=== PATIENT | female | born 1970 | race Caucasian/White ===

== ENCOUNTER → 2020-05-12 09:14 | Outpatient (BNVA) | payer BC, SELFPAY | PROVIDERS: PCP Physician Assistant Medical; Referring Provider Physician Assistant Medical; Visit Provider Anesthesiology Pain Medicine | DX: M51.36 Other intervertebral disc degeneration, lumbar region (principal); M47.816 Spondylosis without myelopathy or radiculopathy, lumbar region; M54.9 Dorsalgia, unspecified; E66.9 Obesity, unspecified; F17.210 Nicotine dependence, cigarettes, uncomplicated | CPT/HCPCS: 99203; 99204 ==

== ENCOUNTER → 2020-05-26 12:35 | Outpatient (BNVA) | payer BC, SELFPAY | PROVIDERS: PCP Physician Assistant Medical; Visit Provider Anesthesiology Pain Medicine | DX: M47.816 Spondylosis without myelopathy or radiculopathy, lumbar region (principal); M54.9 Dorsalgia, unspecified; F17.210 Nicotine dependence, cigarettes, uncomplicated | CPT/HCPCS: 64493; 64494; J1030; J3490 ==

== ENCOUNTER → 2020-08-25 14:34 | Outpatient (BNVA) | payer BC, SELFPAY | PROVIDERS: PCP Physician Assistant Medical; Visit Provider Podiatrist Foot & Ankle Surgery | DX: M79.671 Pain in right foot (principal) | CPT/HCPCS: 73630 ==

== ENCOUNTER 2020-09-22 07:13 | Outpatient (CLI) | payer BC, SELFPAY ==
[2020-09-22 09:12] LABS: 25 Hydroxy Vitamin D 31 ng/mL (30-100)
== END 2020-09-22 07:14 | disposition home or self-care (01) ==
LOC: LAB 07:16
PROVIDERS: PCP Physician Assistant Medical; Visit Provider Podiatrist Foot & Ankle Surgery
DX: M96.0 Pseudarthrosis after fusion or arthrodesis (principal)
CPT/HCPCS: 36415; 82306; 87635

== ENCOUNTER 2020-09-26 06:49 | Day surgery (SDC) | payer BC, SELFPAY ==
[2020-09-25 13:51] VITALS: BMI 39.9
--- NOTE | 2020-09-26 | SCC_ITS ---
Procedure Done: Hardware Removal deep rigth foot 02791 3 seconds of fluoroscopic guidance, for a cumulative dose of 0.07 mGy, was provided to Dr. Cook by the radiology department. C-arm images of the RIGHT foot were saved for the patient's permanent record. [facility]ITAL[facility]
[2020-09-26 06:55] VITALS: BP 141/93; PULSE 78; RESP 18; TEMP 36.1; O2SAT 95
[2020-09-26] MEDS: sodium chloride 0.9% 1,000 ML 30 ML IV (07:15)
--- NOTE | 2020-09-26 07:28 | ANES.PREANE2 ---
Pre-Anesthetic Assessment Pre-Anesthetic Assessment: Height/Weight: Height 1.7 m Weight 115.666 kg Temp Pulse Resp BP Pulse Ox 97 F L 78 18 141/93 95 09/26/20 06:55 09/26/20 06:55 09/26/20 06:55 09/26/20 06:55 09/26/20 06:55 Preop Diagnosis: Nonunion right foot. Painful retained hardware right foot. Proposed Procedure: Operation Date: 09/26/20 08:20 Proposed Procedures p Hardware Removal deep rigth foot 43560 T84.84XA(Right) - Zan Cook, DPM Was Beta Tono taken within 24 hours: Yes Last intake: Intake Last Liquid Date 09/25/20 Last Liquid Time 22:00 Last Solid Date 09/25/20 Last Solid Time 22:00 Social: Social History: No alcohol and No tobacco Exam: Pre-Anes Outpt Exam: alert, oriented x 3, clear to auscultation bilaterally and regular rate & rhythm Airway: Submandibular: WNL Cervical ROM: WNL MP: 2 Dentition: Full Pulmonary: Pulmonary: Sleep apnea CV/HEM: CV/HEM: CAD and HTN Metabolic: Metabolic: Morbid obesity Musc/skel: Musc/skel: Lower Back Pain Anesthetic Plan: ASA status: 3 Anesthesia: Choice Risk of > 500 ml blood loss (7ml/kg in children): No Meds/Allergies Current Medications: Current Medications Generic Name Dose Route Start Last Admin Trade Name Freq PRN Reason Stop Dose Admin Sodium Chloride 1,000 mls @ 30 ml s/hr 09/26/20 07:00 09/26/20 07:15 Sodium Chloride 0.9% IV 09/27/20 06:59 30 mls/hr .Q24H MAGAN Administration PFSH Anesthesia PFSH: Medical History Dyslipidemia HTN (hypertension) Obesity Sleep apnea Surgical History S/P coronary artery stent placement Family History Other Carotid artery stenosis Hypertension Social History Smoking and tobacco status: current every day smoker cigarettes Alcohol intake: never Caregiver/support person: Yes Lives independently: Yes History of recent travel: No Data Anesthesia Cardiac Studies: No Data to Display
--- NOTE | 2020-09-26 08:25 | P.HP_ITS ---
Providers/Chief Complaint Primary Care Provider: Isai Aldrich Chief Complaint: painful orthopedic hardware History of Present Illness Lupe Tom is a 50 year old female presents with right foot pain with painful retained hardware and nonunion arthrodesis site performed in [address] Brody in [facility]. 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 Discussed a staged procedure where we remove hardware and utilize a bone stimulator with plans for revisional arthrodesis pending her response to the above. She would like to proceed with this. She is n.p.o. since midnight. Patient denies any subjective nausea, vomiting, fever, chills, shortness of breath or chest pain. Review of Systems General: Reports: 10 or more systems reviewed and unremarkable except in HPI and below Const: Denies: fever(s) or chills Eyes: Denies: change in vision Card: Denies: chest pain or palpitations Resp: Denies: dyspnea or productive cough GI: Denies: abdominal pain, nausea or vomiting : Denies: flank pain Musc: Reports: extremity pain, joint pain, joint stiffness, limited range of motion and deformity Skin/Breast: Reports: skin tenderness; Denies: rash Neuro: Reports: difficulty walking; Denies: numbness in extremities, sensory changes or frequent falls Psych: Denies: suicidal ideation Reagan/Lymph: Denies: easy bruising Medications/Allergies Home Medications Medication Instructions Recorded Confirmed Last Taken Type aspirin 81 mg tablet,delayed 81 mg PO DAILY 12/28/19 09/25/20 Unknown History release atorvastatin 40 mg tablet 40 mg PO DAILY 12/28/19 09/25/20 Unknown History bupropion HCl 100 mg tablet 100 mg PO TID 12/28/19 09/25/20 Unknown History carvedilol 3.125 mg tablet 3.125 mg PO BID 12/28/19 09/25/20 Unknown History clopidogrel 75 mg tablet 75 mg PO DAILY 12/28/19 09/25/20 09/22/20 History gemfibrozil 600 mg tablet 600 mg PO BID 12/28/19 09/25/20 Unknown History lorazepam 0.5 mg tablet 0.5 mg PO DAILY PRN 12/28/19 09/25/20 Unknown History nitroglycerin 0.4 mg sublingual 0.4 mg SUBLINGUAL Q5M PRN 12/28/19 09/25/20 Unknown History tablet venlafaxine 75 mg capsule,extended 75 mg PO DAILY 12/28/19 09/25/20 Unknown History release 24 hr pregabalin 100 mg capsule 100 mg PO BID #60 cap 05/12/20 09/25/20 Unknown Rx topiramate 25 mg tablet 25 mg PO DAILY 05/12/20 09/25/20 Unknown History bone stimulator #1 ea 08/29/20 08/29/20 Unknown Rx Allergies Allergy/AdvReac Type Severity Reaction Status Date / Time amoxicillin Allergy ADR-Itching Verified 09/25/20 13:47 sumatriptan Allergy ALGY-Anaphy Verified 08/25/20 14:44 laxis adhesive tape AdvReac itchy Verified 08/25/20 14:44 PFSH PFSH: Medical History Dyslipidemia HTN (hypertension) Obesity Sleep apnea Surgical History S/P coronary artery stent placement Family History Other Carotid artery stenosis Hypertension Social History Smoking and tobacco status: current every day smoker cigarettes Alcohol intake: never Caregiver/support person: Yes Lives independently: Yes History of recent travel: No Vital Signs Vitals Signs: Last Vital Signs Temp 97 F L 09/26/20 06:55 Pulse 78 09/26/20 06:55 Resp 18 09/26/20 06:55 BP 141/93 09/26/20 06:55 Pulse Ox 95 09/26/20 06:55 Weight: Weight last 48 hrs Weight 255 lb Physical Exam Narrative: EXAM NARRATIVE: Patient is alert and oriented ?3 and in no acute distress. The following is a focused bilateral lower extremity exam. VASCULAR: Dorsalis pedis and posterior tibial arteries palpable +2. Capillary refill time less than 3 seconds to the distal hallux bilaterally. Calf is supple and nontender proximally and distally. Edema to the right midfoot dorsally and medially. Pedal hair growth present. NEUROLOGICAL: Protective sensation is diminished at the dorsal lateral aspect of the right forefoot compared to medial aspect tested with [place] Romario monofilament she is able to perceive the monofilament however it is diminished. +2 Achilles tendon reflex noted bilaterally. Negative Tinel sign upon percussion of lower extremity nerves. DERMATOLOGICAL: Cicatrix to the right medial column at the level of the navicular and cuneiforms. Lower extremity skin is well-hydrated, normal texture and turgor. There are no open sores or lesions noted to the lower extremities. No erythema or ecchymosis present to the bilateral legs and feet. MUSCULOSKELETAL: Pain to palpation at the right medial navicular, dorsal navicular and cuneiforms. Rectus foot type. Muscle strength 5 out of 5 in all 3 cardinal planes to the bilateral foot and ankle. There is pain elicited at the navicular and cuneiform articulations with dorsiflexion and plantarflexion, eversion and inversion. There is no crepitus. Resp: COMMON NORMALS: normal respiratory effort, No retractions, No use of accessory muscles and clear to auscultation bilaterally EFFORT & INSPECTION: Yes able to speak in complete sentences and Yes symmetric chest movement Cardio: COMMON NORMALS: regular rate, regular rhythm and Peripheral pulses 2+ throughout A&P Additional A&P Information Patient examined and evaluated, findings and treatment options discussed with patient at length. I reviewed x-rays of her right foot 3 views weightbearing shows intact hardware without breakage. Oblique screw from medial navicular to the lateral cuneiform has lucency around the screw due to motion. Also motion at the oblique screw from the medial cuneiform directed distal medial to proximal lateral shows motion. There is also motion artifact at the distal plate screws directed from medial to lateral in the medial and intermediate cuneiform. There is a lack of osseous healing at the naviculocuneiform ar ticulations at the arthrodesis site. This correlates clinically to pain to palpation at these joints. I reviewed patient's x-rays at length with her as well as clinical findings and informed her that hardware placement looked very appropriate, I did explain the motion at the hardware and this is due to a nonunion. I would like to order vitamin D level, encouraged smoking cessation and discussed revision. Patient states that she would like to have this done as soon as possible. I believe that going into a revision of this nature we do need to check basic labs as well as precertify her for bone stimulator. Will also discuss hardware removal and staged resection of nonunion with revisional arthrodesis. Will proceed with staged procedure hardware removal today, utilize vitamin D supplement, utilize bone stimulator for nonunion and plan on revisional arthrodesis down the road should she fail to achieve bony union. Risks include pain, bleeding, numbness, infection, surgical site dehiscence, swelling, neuropraxia, hypersensitivity, painful scar, chronic swelling, DVT, PE, heart attack, stroke, , need for revisional arthrodesis. Patient wishes to proceed. Right foot deep hardware removal 09/26/2020, MAC anesthesia, duration of procedure likely 30 minutes. 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
--- NOTE | 2020-09-26 08:31 | P.HPUD_ITS ---
Surgery/Procedure H&P Update DATE OF PROCEDURE: September 26, 2020 DATE H&P PERFORMED: 09/19/20 H&P UPDATE INFORMATION: I have reviewed H&P completed within last 30 days, I have examined patient prior to procedure, No changes to prior documentation and H&P is in [facility] EMR on date indicated PREOP DIAGNOSIS: Nonunion right foot. Painful retained hardware right foot. PLANNED PROCEDURE: Operation Date: 09/26/20 08:20 Proposed Procedures p Hardware Removal deep rigth foot 48340 T84.84XA(Right) - Zan Cook DPM
--- NOTE | 2020-09-26 09:49 | XR_ITS ---
WS: [id number] Exam: XR foot RT min 3V* [id number] Date/Time of Exam: 09/26/2020 9:53 AM Reason For Exam: post op Comparison 08/25/2020. Previously noted fusion hardware has been removed from the navicular and first and second cuneiform b ones. Postoperative changes in the adjacent soft tissues. XR/XR foot RT min 3V* [id number] IMPRESSION: 1. Hardware removal from the tarsal navicular and first and second cuneiform sarah rai.
[2020-09-26 09:51] VITALS: BP 116/61; PULSE 71; RESP 16; TEMP 36.1; O2SAT 94
--- NOTE | 2020-09-26 09:51 | PM.OP ---
Operative Report Date of procedure: September 26, 2020 Pre-op Diagnosis: Nonunion right foot. Painful retained hardware right foot. Post-op diagnosis: same Post-op Findings: None Procedure Done: Hardware Removal deep rigth foot Implants: 2-0 Vicryl, 4-0 Vicryl, 4-0 nylon Specimens removed/disposition: 5 screws 1 plate right foot removed from bone. Pathology: none sent Surgeon: Zan Cook D.P.M. Academic Assistant: Trina Anesthesia: MAC Estimated blood loss: Less than 5 mL Tourniquet time: See intraoperative documentation IV fluids: None Urine output: None Complications: None Findings: Deep retained hardware Condition: stable Disposition: PACU Brief History: Ms. Jean is a pleasant 50-year-old female with painful retained hardware and nonunion to the right foot. Would like to have a staged procedure with hardware removal as the initial step, will supplement vitamin D3 and utilize bone stimulator once approved by insurance this is currently pending. Should she continue to have pain will likely require a revisional arthrodesis this is something that would be staged out. Risks include pain, bleeding, numbness, infection, painful scar, chronic swelling, nonunion, need for further surgical intervention. Patient interviewed preoperatively, all questions answered to her satisfaction. No concerns. Initial patient's right lower extremity informed consent is signed. No guarantees written, expressed or implied. Procedure: Under the patient was brought to the operating room and placed on the operating table in supine position. A timeout was performed. Anesthesia was then administered by the anesthesia service. Local anesthesia injected by myself 30 cc of 0.5% Marcaine plain in a right ankle block fashion. A well-padded pneumatic tourniquet applied to the right calf. Right lower extremity was scrubbed, prepped and draped utilizing normal aseptic technique. Right foot was examined a weighted with an Esmarch bandage and the tourniquet was inflated to 250 mmHg. Attention was directed to the dorsal medial aspect of the first ray, directly over the previous cicatrix a #15 blade was utilized to perform a linear longitudinal incision through skin and and dissection carried down through subcutaneous tissue down the level of the hardware utilizing sharp and blunt technique. Care was taken to retract and preserve neurovascular and tendinous structures. All bleeders were ligated and cauterized as necessary. Hardware was encountered to bone and a total of 5 screws and 1 plate all Garfield were passed from operative field. No for the hardware remaining, this was confirmed utilizing intraoperative fluoroscopy. Incision site was flushed with saline solution. Periosteum reapproximated utilizing 2-0 Vicryl. Subcutaneous tissue closed utilizing 4-0 Vicryl and skin closed utilizing 4-0 nylon in a running interlocking fashion. Subcutaneous tissue was infiltrated with Exparel total of 20 cc nonexpanded. Incision site was then dressed with nonadherent Adaptic, sterile 4 x 4, Kerlix and Inderjit wrap. Cam boot was applied. Tourniquet was deflated and a prompt hyperemic response was noted to the distal digits of the right foot. Patient tolerated the procedure and anesthesia well and was transferred to the PACU with vital signs stable and vascular status intact. Following a period of postop monitoring she will be discharged home was given instructions and follow-up care on discharge paperwork.
[2020-09-26] MEDS: HYDROcodone-acetaminophen 10-325 mg Tablet 1 TAB PO (10:21)
[2020-09-26 10:35] VITALS: BP 131/70; PULSE 65; RESP 18; O2SAT 96
--- NOTE | 2020-09-26 13:59 | ANE.PACU2 ---
Inpatient post-anesthesia follow up: Airway intact: Yes Vital signs: Temperature 97 F Pulse Rate 65 Respiratory Rate 18 Blood Pressure 131/70 Pulse Oximetry 96 Oxygen Delivery Me thod Room Air Oxygen Flow Rate Fraction of Inspir ed Oxygen Hydration adequate: Yes Nausea and vomiting: No Pain level: 1 Mental status: Baseline
== END 2020-09-26 10:38 | disposition home or self-care (01) ==
PROVIDERS: PCP Physician Assistant Medical; Visit Provider Podiatrist Foot & Ankle Surgery
PROC: (CPT 20680; principal; 2020-09-26 08:20)
DX: T84.84XA Pain due to internal orthopedic prosthetic devices, implants and grafts, initial encounter (principal); G47.30 Sleep apnea, unspecified; I25.10 Atherosclerotic heart disease of native coronary artery without angina pectoris; I10 Essential (primary) hypertension; E66.01 Morbid (severe) obesity due to excess calories; Z68.39 Body mass index [BMI] 39.0-39.9, adult; E78.5 Hyperlipidemia, unspecified; F17.210 Nicotine dependence, cigarettes, uncomplicated; Z79.82 Long term (current) use of aspirin; Z95.5 Presence of coronary angioplasty implant and graft
CPT/HCPCS: 20680; 73630; 76000; 96365; C1713; J0690; J2250; J2704; J3010; J3490; J7030

== ENCOUNTER → 2020-10-10 09:51 | Outpatient (BNVA) | payer BC, SELFPAY | PROVIDERS: PCP Physician Assistant Medical; Visit Provider Podiatrist Foot & Ankle Surgery | DX: M79.673 Pain in unspecified foot (principal); T84.84XA Pain due to internal orthopedic prosthetic devices, implants and grafts, initial encounter | CPT/HCPCS: 73630 ==

== ENCOUNTER → 2020-12-18 08:04 | Outpatient (BNVA) | payer BC, SELFPAY | PROVIDERS: PCP Physician Assistant Medical; Visit Provider Podiatrist Foot & Ankle Surgery | DX: M79.671 Pain in right foot (principal) | CPT/HCPCS: 73620; 73630 ==

== ENCOUNTER 2021-01-16 07:44 | Outpatient (CLI) | payer BC, SELFPAY ==
--- NOTE | 2021-01-16 08:00 | MR_ITS ---
WS: [id number] MRI LUMBAR SPINE NONCONTRAST TECHNIQUE: Sagittal T1, T2 and STIR imaging. Axial T1 and T2 imaging. CLINICAL INFORMATION: M48.061 - Spinal stenosis, lumbar region without neurogen... COMPARISON: MRI June 2019 FINDINGS: Mild lumbar curve. No acute compression. Schmorl's node inferior endplate L2 unchanged [id number]. No high-grade central canal stenosis. L1-L2: Normal. L2-L3: Mild disc bulging with slight narrowing of the right subarticular recess. Mild facet arthropat hy. Foramen are patent. L3-L4: Mild annular bulging. Mild facet arthropathy. Spinal canal and foramen are patent. L4-L5: Left eccentric disc bulging with mild central canal stenosis. Impingement on traversing left L 5 nerve root. Left foraminal protrusion impinges the exiting L4 nerve root with moderate left foramin al narrowing. Right foramen is patent. Mild facet arthropathy. L5-S1: Tiny right foraminal protrusion with slight encroachment on the exiting right L5 nerve root. N o significant foraminal narrowing. Mild facet arthropathy. Visualized pelvic bony structures: Normal. Paravertebral soft tissues: Normal. MR/MR lumbar spine wo con* [id number] IMPRESSION: 1. Mild lumbar curve. No acute compression. No high-grade central canal stenos is. 2. Mild central canal stenosis L4-5 with mild disc bulging eccentric to the le ft. Impingement traversing left L5 nerve root. 3. Left foraminal protrusion L4-5 impinges the exiting left L4 nerve root with moderate left foraminal narrowing. 4. Mild facet arthropathy L3-L5. 5. Overall no significant changes since 2019
== END 2021-01-16 07:45 | disposition home or self-care (01) ==
LOC: RADSHAW 07:47
PROVIDERS: PCP Physician Assistant Medical; Visit Provider Orthopaedic Surgery
DX: M48.061 Spinal stenosis, lumbar region without neurogenic claudication (principal); M47.816 Spondylosis without myelopathy or radiculopathy, lumbar region; M51.26 Other intervertebral disc displacement, lumbar region
CPT/HCPCS: 72110; 72148

== ENCOUNTER 2021-02-09 15:02 | Outpatient (CLI) | payer BC, SELFPAY | END 2021-02-09 15:03 | disposition home or self-care (01) | LOC: SPT 15:03 | PROVIDERS: PCP Physician Assistant Medical; Visit Provider Podiatrist Foot & Ankle Surgery | DX: Z46.89 Encounter for fitting and adjustment of other specified devices (principal); T84.84XD Pain due to internal orthopedic prosthetic devices, implants and grafts, subsequent encounter; X58.XXXD Exposure to other specified factors, subsequent encounter | CPT/HCPCS: L3030 ==

== ENCOUNTER → 2021-02-17 11:00 | Outpatient (BNVA) | payer BC, SELFPAY | PROVIDERS: PCP Physician Assistant Medical; Visit Provider Orthopaedic Surgery | DX: Z01.818 Encounter for other preprocedural examination (principal); Z20.822 Contact with and (suspected) exposure to COVID-19 | CPT/HCPCS: 87635 ==

== ENCOUNTER 2021-02-20 07:03 | Day surgery (SDC) | payer BC, SELFPAY ==
[2021-02-19 11:20] VITALS: BMI 38.5
--- NOTE | 2021-02-19 13:00 | ECG_ITS ---
[facility] Test Date: 2021-02-19 Pat Name: Lupe Tom Department: Room: Gender: Female Manager Utilities: : 1970 Requested By: Sarah Mcmullen Order Number: [id number] Dylan MD: Bhupendra Finney M.D. Measurements Intervals [place] Rate: 94 P: 58 NM: 150 QRS: 22 QRSD: 90 T: 32 QT: 349 QTc: 437 Interpretive Statements SINUS RHYTHM NONSPECIFIC T-WAVE ABNORMALITY Compared to ECG 05/14/2017 18:31:27 No significant changes Electronically Signed On 02-20-2021 14:57:42 CDT by Bhupendra Finney M.D. [email or web address]
--- NOTE | 2021-02-19 13:16 | ANES.PREANE2 ---
Pre-Anesthetic Assessment Pre-Anesthetic Assessment: Height/Weight: Height 1.7 m Weight 111.584 kg Preop Diagnosis: Nonunion right foot. Painful retained hardware right foot. Proposed Procedure: Operation Date: 02/20/21 08:40 Proposed Procedures p lumbar decompression L4/5 10673 63388 M48.061(Not Applicable) - Anthony Jackson DO Familial anesthetic complications: None Social: Social History: Tobacco and No alcohol Exam: Pre-Anes Outpt Exam: alert, oriented x 3, clear to auscultation bilaterally and regular rate & rhythm Airway: Cervical ROM: WNL MP: 1 Dentition: Full and Other (back missing) Pulmonary: Pulmonary: Sleep apnea (no longer has sleep apnea) CV/HEM: CV/HEM: CAD (RCA/LAD stents 6-7 years ago, on plavix), HTN and CT (6-7 years ago) Metabolic: Metabolic: Morbid obesity Musc/skel: Musc/skel: Lower Back Pain Neuropsych: Neuropsych: CROWDER Anesthetic Plan: ASA status: 3 Anesthesia: General Risk of > 500 ml blood loss (7ml/kg in children): No PFSH Anesthesia PFSH: Medical History Coronary artery disease Dyslipidemia HTN (hypertension) Obesity Sleep apnea Tobacco use disorder Surgical History S/P cholecystectomy S/P coronary artery stent placement S/P total abdominal hysterectomy Family History Other Carotid artery stenosis Hypertension Social History Smoking and tobacco status: current every day smoker cigarettes Alcohol intake: never Caregiver/support person: Yes Lives independently: Yes History of recent travel: No Data Anesthesia Cardiac Studies: No Data to Display
[2021-02-19 13:45] LABS: Basophils # 0.1 10^3/uL (0.0-0.1); Basophils % 0.5 %; Eosinophils # 0.1 10^3/uL (0.0-0.8); Eosinophils % 0.6 %; Hematocrit 46.7 % (37.0-47.0); Hemoglobin 15.5 g/dL (11.5-15.3); Lymphocytes # 3.7 10^3/uL (0.8-4.8); Lymphocytes % 33.9 %; Mean Corpuscular HGB Conc 33.2 g/dL (30.0-36.0); Mean Corpuscular Hemoglobin 32.4 pg (28.0-34.0); Mean Corpuscular Volume 97.5 fL (81-99); Mean Platelet Volume 12.1 fL (7.4-10.4); Monocytes # 0.9 10^3/uL (0.2-0.9); Monocytes % 8.6 %; Neutrophils # 6.13 10^3/uL (1.8-7.7); Neutrophils % 55.9 %; Nucleated Red Blood Cells % 0 %; Platelet Count 240 10^3/cmm (130-400); Red Blood Count 4.79 10^6/uL (4.1-5.3); Red Cell Distribution Width 12.4 % (12.1-15.1)
[2021-02-20] VITALS (9 sets, daily range): BP systolic 130–156; BP diastolic 83–89; PULSE 71–109; RESP 16–18; TEMP 36.6–37.2; O2SAT 96–100
--- NOTE | 2021-02-20 | XR_ITS ---
WS: [id number] Lumbar spine, C-arm fluoroscopy view, 02/20/2021 Clinical Data: Decompression L4/L5 Comparison: Lumbar spine, 12/26/2020. Findings: Dr. Jackson decompressed the L4-L5 disc level. XR/XR lumbar spine 1V 40115 Impression: Decompression L4-L5.
--- NOTE | 2021-02-20 | SCC_ITS ---
Procedure Done: L4/5 bilateral laminectomy with partial facetectomies 13.6 seconds of fluoroscopic guidance, for a cumulative dose of 6.4 mGy, was provided to Dr. Jackson by the radiology department. C-arm images of the lumbar spine were saved for the patient's permanent record. CRYSTAL
--- NOTE | 2021-02-20 07:47 | ANES.PAUD2 ---
Pre-Anesthetic Update Pre-Anesthetic Assessment: Date of Surgery/Procedure: 02/20/21 Preop Diagnosis: lumbar stenosis Proposed Procedure: Operation Date: 02/20/21 08:40 Proposed Procedures p lumbar decompression L4/5 41512 25964 M48.061(Not Applicable) - Anthony Jackson, DO Any changes to Pre-Anesthetic Assessment?: No Last Intake: Intake Last Liquid Date 02/19/21 Last Liquid Time 22:00 Last Solid Date 02/19/21 Last Solid Time 22:00 Labs Last 48hrs: Laboratory Results - last 48 hr 02/19/21 13:05 WBC 11.0 H RBC 4.79 Hgb 15.5 H Hct 46.7 MCV 97.5 MCH 32.4 MCHC 33.2 RDW 12.4 Plt Count 240 MPV 12.1 H Neut % (Auto) 55.9 Lymph % (Auto) 33.9 [place] % (Auto) 8.6 Eos % (Auto) 0.6 Baso % (Auto) 0.5 Neut # (Auto) 6.13 Lymph # (Auto) 3.7 [place] # (Auto) 0.9 Eos # (Auto) 0.1 Baso # (Auto) 0.1 Nucleated RBC % (a uto) 0 Nucleated RBCs # 0.0 Vitals: Temperature 97.8 F 02/20/21 07:22 Pulse Rate 80 02/20/21 07:22 Pulse Rhythm 02/20/21 07:23 Pulse Strength 3+ Normal 02/20/21 07:23 Respiratory Rate 16 02/20/21 07:22 Blood Pressure 132/86 02/20/21 07:22 Blood Pressure Bessie n 101 02/20/21 07:22 Pulse Oximetry 96 02/20/21 07:22 Oxygen Delivery Me thod 02/20/21 07:23 Exam: Pre-Anes Outpt Exam: alert, oriented x 3, clear to auscultation bilaterally and regular rate & rhythm Cardiac Studies: No Data to Display
--- NOTE | 2021-02-20 07:54 | W.PM.OPSUD ---
Surgery/Procedure H&P Update DATE OF PROCEDURE: February 20, 2021 DATE H&P PERFORMED: 02/20/21 PREOP DIAGNOSIS: lumbar stenosis PLANNED PROCEDURE: Operation Date: 02/20/21 08:40 Proposed Procedures p lumbar decompression L4/5 41546 64839 M48.061(Not Applicable) - Anthony Jackson DO
--- NOTE | 2021-02-20 07:55 | PM.HP ---
Providers/Chief Complaint Primary Care Provider: Isai Aldrich Chief Complaint: lumbar decompression L4/5 [id number] History of Present Illness Lupe Tom is a 50 year old female Chief Complaint: low back pain Onset: years - after falling down wet stairs Duration: years Characteristics: ache Severity: 8 Location: low back Radiating symptoms: none Aggravating factors: increase activity Alleviating factors: continues to use rest, topical cream, ibuprofen 4x a day, Tylenol,and aleve with minimal relief Neuro deficits: denies numbness, tingling, weakness, incontinence of bowel/bladder, saddle anesthesia. Prior tx: Facet injection to L4/[address] Bonilla with one day of relief but then increase in pain after that. Review of Systems Narrative: General ROS: negative for weight changes, fever ENT ROS: negative for nasal congestion, drainage or bleeding, sore throat, dysphagia or ear pain Eyes: PERRL Hematological and Lymphatic ROS: negative for swollen glands or abnormal bleeding Endocrine ROS: negative for polyuria/polydpsia or new changes in weight Respiratory ROS: negative for cough, shortness of breath, or wheezing Cardiovascular ROS: negative for chest pain or dyspnea on exertion Gastrointestinal ROS: negative for reflux, abdominal pain, change in bowel habits, or black or bloody stools Musculoskeletal ROS: negative for back pain, neck pain, or joint pain or swelling except for current problem Neurological ROS: negative for TIA or stoke symptoms Skin: no rashes Medications/Allergies Home Medications Medication Instructions Recorded Confirmed Last Taken Type aspirin 81 mg tablet,delayed 81 mg PO DAILY 12/28/19 02/19/21 Unknown History release atorvastatin 40 mg tablet 40 mg PO DAILY 12/28/19 02/19/21 Unknown History bupropion HCl 100 mg tablet 100 mg PO TID 12/28/19 02/19/21 Unknown History carvedilol 3.125 mg tablet 3.125 mg PO BID 12/28/19 02/20/21 02/20/21 07:00 History clopidogrel 75 mg tablet 75 mg PO DAILY 12/28/19 02/19/21 02/12/21 History gemfibrozil 600 mg tablet 600 mg PO BID 12/28/19 02/20/21 02/19/21 History venlafaxine 75 mg capsule,extended 75 mg PO DAILY 12/28/19 02/20/21 02/20/21 07:00 History release 24 hr topiramate 25 mg tablet 25 mg PO DAILY 05/12/20 02/20/21 02/19/21 History nitroglycerin 0.4 mg sublingual 0.4 mg SUBLINGUAL Q5M PRN #30 tab 11/05/20 02/19/21 Unknown Rx tablet Sole Supports #1 ea 12/18/20 01/22/21 Unknown Rx Allergies Allergy/AdvReac Type Severity Reaction Status Date / Time amoxicillin Allergy ADR-Itching Verified 02/19/21 11:13 sumatriptan Allergy ALGY-Anaphy Verified 02/19/21 11:13 laxis adhesive tape AdvReac itchy Verified 02/19/21 11:13 PFSH Acute PFSH: Medical History Coronary artery disease Dyslipidemia HTN (hypertension) Obesity Sleep apnea Tobacco use disorder Surgical History S/P cholecystectomy S/P coronary artery stent placement S/P total abdominal hysterectomy Family History Other Carotid artery stenosis Hypertension Social History Smoking and tobacco status: current every day smoker cigarettes Alcohol intake: never Caregiver/support person: Yes Lives independently: Yes History of recent travel: No Vitals/I&O/Wt Last Vital Signs Temp 97.8 F 02/20/21 07:22 Pulse 80 02/20/21 07:22 Resp 16 02/20/21 07:22 BP 132/86 02/20/21 07:22 Pulse Ox 96 02/20/21 07:22 Weight last 48 hrs Weight 246 lb Physical Exam Narrative: EXAM NARRATIVE: CONSTITUTIONAL: The patient is a normal appearing [] in no apparent distress. GENERAL: Patient in no acute distress. CARDIAC: Regular rate and rhythm. CHEST: Normal inspiratory effort, normal respiratory rate. ABDOMEN: Soft and nontender. SKIN: Clear, warm and intact. NEURO?PSYCH: The patient is alert and oriented to person, place and time. Sensorv /SILT Motor StrengthShoulder abduction C5 5/5Wrist extension C6 5/5Elbow extension C7 5/5Hand Registered Art Therapist C8 5/5Finger abduction T15/5 Radial/ Ulnar/ Median n intact LowerSensory (SILT)Motor StrengthHin flexion L2/3Ant/inner thigh 5/5Hip adduction L2/3 5/5Knee extension L4 Lat thigh, 5/5Toe dorsiflexion L5 5/5Ankle dorsiflexion L5/ K50Pemkirl flexion S1 5/5 DTRBleeps 2+Triceps 2+Brachioradialis 2+Patellar 2+Achilles 2+ MUSCULOSKELETAL: [] UPPEREXTREMITIES: The patient had full active ROM in fingers, wrist, elbow, and shoulder. The patient demonstrated ability to fully flex/extend/abduct/adduct fingers, make ok sign, cross 2nd/3rd digits, extend 1st digit fully.. Radial pulse 2+, CR<2 seconds. LOWER EXTREMITIES: Pt has full, active ROM of toes, ankle, knee, and hip. Dorsalis pedis/posterior tibialis pulses 2+, CR<2 seconds. SPINE: Skin warm, dry, intact. Data : 02/19/21 13:05 A&P Assessment and plan (1) Lumbar stenosis with neurogenic claudication: L4/5 MIS decompresion Status: Acute Attestations Medical Necessity Statement*: failed conservative tx Coding Level of Care Code Acute Pediatrics Physician for [facility] Fwd Diagnoses Lumbar stenosis with neurogenic claudication M48.062
[2021-02-20] MEDS: clindamycin 900 MG/50 ML PREMIX 100 MG IV (08:20)
[2021-02-20] MEDS: sodium chloride 0.9% 1,000 ML 30 ML IV (08:30)
--- NOTE | 2021-02-20 09:30 | PM.OP ---
Operative Report Date of procedure: February 20, 2021 Pre-op Diagnosis: lumbar stenosis Post-op diagnosis: same Procedure Done: L4/5 bilateral laminectomy with partial facetectomies Surgeon: Anthony Jackson Anesthesia: General Estimated blood loss (mL): 5 Condition: stable Disposition: PACU Procedure: L4/5 bilateral laminectomy with partial facetectomies Patient is brought to the operative suite. After undergoing anesthesia they are placed in the supine position. All areas of impingement are well padded. Patient is then prepped and draped in the normal sterile fashion. A skin incision is made over the L4/5 level. This is confirmed under c-arm guidance. A series of dilators are passed and the tubular retractor is docked on the L4 lamina. A bovie is used to clear the soft tissue off the lamina and the L 4/5 facet joint. A high speed daniella is then used to perform the laminectomy and take down the medial aspect of the L 4/5 facet joint. A kerrison rongeure was then used to take down the remaining lamina and smooth the edged of the laminectomy up to the point where the ligamentum flavum attaches. Attention was then brought to the medial aspect of the facet joint. The remaining medial aspect of the superior and inferior aspect of the facet joint were taken down with the kerrison from the pedicle of L4 to L 5. The facet joint had significant hypertrophy. Attention was then brought to the Ligamentum Flavum. The ligament was taken down from the lamina of L4 to L5 and out medially to the remaining facet joint. The ligament was thick. The dura was then exposed. The dura was in good repair. The L4 nerve was then traced with a curette out the L4/5 foramen and found to be adequately decompressed. The L5 nerve was traced with a curette around the L5 pedicle. The lateral recess was opened with a kerrison helping to further decompress the L5 nerve. The tubular retractor was then tilted to the contralateral side. The bovie was used to take down the soft tissue on the spinous process. The high speed daniella was used to take down the spinous process and then the contralateral lamina of L4. The kerrison rongeur was used to take down the remaining lamina to the point where the ligamentum flavum attached and the ligamentum flavum was taken down from L4 to L5. The kerrison rongeur was then used to reach across and take down the medial aspect of the contralateral L4/5 facet joint.The currete was used to trace the contralateral L4 nerve out the L4/5 foramen to make sure it was decompressed adequatesly and the L5 was traced around the L5 pedicle. The lateral recess was opened further with the kerrison to ensure the L5 is adequately decompressed. Wound is then irrigated copiously with saline and surgiflo is used to stop any bleeding. The tubular retractor is removed and the wound is closed with vicryl and monocryl suture. Glue is then used to protect the wound. A sterile dressing is then placed. Patient was then placed in the supine position and transferred to the PACU in stable condition.
--- NOTE | 2021-02-20 09:47 | SUR.PHASEI ---
PT AWAKES ALERT ORIENTED TO PERSON AND PLACE PT REPOSITIONS SELF, VSS GOOD RESP , PT ON RT SIDE, O2 NOW PER 3LNC FOR PT COMFORT.
[2021-02-20] MEDS: acetaminophen 1,000 MG/100 ML PIGGYBACK 400 MG IV (10:30)
--- NOTE | 2021-02-20 10:38 | SUR.PREOP ---
patient complaint of sever headache. Dr. hoffman informed alone with Dr. Jackson. Iv tylenol given with caffeine. Patient also given pain pill. bp 134/89
[2021-02-20] MEDS: HYDROcodone-acetaminophen 5-325 mg Tablet 1 TAB PO (10:42)
--- NOTE | 2021-02-20 11:32 | SUR.PREOP ---
patient head feel better. Dr. Jackson in to see her. Patient feels better and ready to go home.
--- NOTE | 2021-02-20 14:24 | ANE.PACU2 ---
Inpatient post-anesthesia follow up: Airway intact: Yes Vital signs: Temperature 97.8 F Pulse Rate 73 Respiratory Rate 18 Blood Pressure 133/83 Pulse Oximetry 97 Oxygen Delivery Me thod Room Air Oxygen Flow Rate 3 Fraction of Inspir ed Oxygen Hydration adequate: Yes Nausea and vomiting: No Pain level: 2 Mental status: Baseline
== END 2021-02-20 11:31 | disposition home or self-care (01) ==
PROVIDERS: Anesthesiology; PCP Physician Assistant Medical; Visit Provider Orthopaedic Surgery
PROC: (CPT 63005; principal; 2021-02-20 08:35)
DX: M48.062 Spinal stenosis, lumbar region with neurogenic claudication (principal); I25.10 Atherosclerotic heart disease of native coronary artery without angina pectoris; Z95.5 Presence of coronary angioplasty implant and graft; I10 Essential (primary) hypertension; I25.2 Old myocardial infarction; E66.01 Morbid (severe) obesity due to excess calories; Z68.38 Body mass index [BMI] 38.0-38.9, adult; E78.5 Hyperlipidemia, unspecified; G47.30 Sleep apnea, unspecified; F17.210 Nicotine dependence, cigarettes, uncomplicated
CPT/HCPCS: 63047; 36415; 72020; 76000; 85025; 93005; J1100; J2405; J2704; J2710; J3010; J3490; J7030

== ENCOUNTER → 2022-02-04 13:28 | Outpatient (BNVA) | payer BC, SELFPAY | PROVIDERS: PCP Physician Assistant Medical; Visit Provider Orthopaedic Surgery | DX: Z48.89 Encounter for other specified surgical aftercare (principal) | CPT/HCPCS: 72100 ==

== ENCOUNTER 2022-06-08 15:21 | Outpatient (CLI) | payer BC, SELFPAY ==
--- NOTE | 2022-06-08 16:00 | MR_ITS ---
WS: [id number] MRI LUMBAR SPINE NONCONTRAST TECHNIQUE: Sagittal T1, T2 and STIR imaging. Axial T1 and T2 imaging. CLINICAL INFORMATION: lumbar pain COMPARISON: None. FINDINGS: Mild lumbar curve. No acute compression. Anterior wedging at L2. This is unchanged since January 16 1. L1-L2: Normal. L2-L3: Mild disc bulging with slight effacement of ventral thecal sac. Slight narrowing of the RIGHT subarticular recess. Mild facet arthropathy. Mild RIGHT foraminal narrowing. L3-L4: No significant disc bulging. Mild facet arthropathy. Spinal canal and foramen are patent. L4-L5: LEFT hemilaminectomy is new from previous. Mild disc bulging with impingement LEFT subarticula r recess and traversing LEFT L5 nerve root. Moderate facet arthropathy. Small facet effusions. LEFT f oraminal protrusion with moderate LEFT foraminal narrowing. L5-S1: Mild disc bulging with osteophytic ridging. Mild RIGHT and no significant LEFT foraminal narro wing. Spinal canal is patent. Visualized pelvic bony structures: Normal. Paravertebral soft tissues: Normal. MR/MR lumbar spine wo con* [id number] IMPRESSION: 1. Mild lumbar curve. No acute compression. No high-grade central canal stenos is. Chronic anterior wedging at L2 unchanged. 2. LEFT L4-L5 hemilaminectomy appears new from previous. Improved central dave l stenosis at this level. Mild residual impingement traversing LEFT L5 nerve ro ot. LEFT foraminal protrusion impinges the exiting LEFT L4 nerve root with mode rate LEFT foraminal narrowing. 3. Otherwise no significant changes compared to previous. 4. Mild RIGHT L5-S1 foraminal narrowing. 5. Mild facet arthropathy L3-L4 and L4-L5. 6. Mild annular bulging L2-L3 slightly impinges the traversing RIGHT L3 nerve root with mild RIGHT L2-L3 foraminal narrowing.
== END 2022-06-08 15:22 | disposition home or self-care (01) ==
LOC: RAD 15:22
PROVIDERS: PCP Physician Assistant Medical; Visit Provider Physician Assistant
DX: M48.061 Spinal stenosis, lumbar region without neurogenic claudication (principal); Z48.89 Encounter for other specified surgical aftercare; M47.816 Spondylosis without myelopathy or radiculopathy, lumbar region
CPT/HCPCS: 72148

== ENCOUNTER 2022-09-08 10:09 | Outpatient (CLI) | payer BC, SELFPAY | END 2022-09-08 10:10 | disposition home or self-care (01) | LOC: RT 09-10 10:12 | PROVIDERS: PCP Physician Assistant Medical; Visit Provider Orthopaedic Surgery | DX: Z13.6 Encounter for screening for cardiovascular disorders (principal) | CPT/HCPCS: 93005 ==

== ENCOUNTER 2022-09-15 16:34 | Inpatient (IN) | payer BC, SELFPAY ==
--- NOTE | 2022-09-08 10:34 | ECG_ITS ---
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 Measurements Intervals Hester Rate: 83 P: 53 KS: 144 QRS: 39 QRSD: 93 T: 31 QT: 404 QTc: 477 Interpretive Statements SINUS RHYTHM NONSPECIFIC T-WAVE ABNORMALITY Compared to ECG 02/19/2021 13:10:20 No significant changes Electronically Signed On 09-09-2022 0:15:38 MACHINE II COREMAKER by Bhupendra Finney M.D. [id number]
--- NOTE | 2022-09-08 10:47 | ANES.PREANE2 ---
Pre-Anesthetic Assessment Height/Weight: Height 1.7 m Weight 102.058 kg Preop Diagnosis: lumbar stenosis Operation Date: 09/15/22 10:35 Proposed Procedures p Posterior Lumbar Interbody Fusion:L4/5 [id number],M45.50,M79.605,M54.37(Not Applicable) - Anthony Jackson, DO Familial anesthetic complications: None Social No alcohol and No tobacco Exam alert, oriented x 3, clear to auscultation bilaterally and regular rate & rhythm Airway Mallampati: Class III Dentition: full Pulmonary Sleep Apnea CV/HEM Coronary Artery Disease (2 stents) and Hypertension Metabolic Hyperlipidemia [facility] None reported Neuropsych None reported Anesthetic Plan ASA status: 3 Anesthesia: General Risk of > 500 ml blood loss (7ml/kg in children): No Medications/Allergies Home Medications Medication Instructions Recorded Confirmed Last Taken Type aspirin 81 mg tablet,delayed 81 mg PO DAILY 12/28/19 09/08/22 09/06/22 History release (Aspir-) atorvastatin 40 mg tablet 40 mg PO DAILY 12/28/19 09/08/22 09/06/22 History carvedilol 3.125 mg tablet 3.125 mg PO BID 12/28/19 09/08/22 09/06/22 History clopidogrel 75 mg tablet 75 mg PO DAILY 12/28/19 09/08/22 09/06/22 History gemfibrozil 600 mg tablet (Lopid) 600 mg PO BID 12/28/19 09/08/22 09/06/22 History venlafaxine 75 mg capsule,extended 75 mg PO DAILY 12/28/19 09/08/22 09/06/22 History release 24 hr nitroglycerin 0.4 mg sublingual 0.4 mg sublingual Q5M PRN Pain #30 07/01/22 09/08/22 Unknown Rx tablet tabs Allergies Allergy/AdvReac Type Severity Reaction Status Date / Time amoxicillin Allergy ADR-Itching Verified 09/08/22 10:28 sumatriptan Allergy ALGY-Anaphy Verified 09/08/22 10:28 laxis adhesive tape AdvReac itchy Verified 09/08/22 10:28 [facility] Anesthesia Medical History Coronary artery disease Dyslipidemia HTN (hypertension) Obesity Sleep apnea Tobacco use disorder Surgical History S/P cholecystectomy S/P coronary artery stent placement S/P total abdominal hysterectomy Family History Other Carotid artery stenosis Hypertension Social History (Updated 08/03/22 @ 08:10 by Claudia Aguilar LPN) Smoking and tobacco status: former smoker Quit status (tobacco): has quit using tobacco Second hand smoke exposure: No Smoking risk assessment/counseling performed?: Yes Tobacco counseling given: provider counseling Alcohol intake: never Caregiver/support person: Yes Lives independently: Yes History of recent travel: No Data Anesthesia Cardiac Studies: No Data to Display
[2022-09-15] VITALS (30 sets, daily range): BP systolic 95–151; BP diastolic 61–107; PULSE 75–107; RESP 7–20; TEMP 36.2–37; O2SAT 90–100
[2022-09-15] MEDS: sodium chloride 0.9% 1,000 ML 30 ML IV (11:34)
[2022-09-15] MEDS: scopolamine 1.5 Patch 1 PATCH TRANSDERMA (11:36)
--- NOTE | 2022-09-15 11:53 | P.ANESUD_ITS ---
Pre-Anesthetic Update Pre-Anesthetic Assessment: Date of Surgery/Procedure: 09/15/22 Preop Breonna gnosis: DDD Lumbar spine Proposed Procedure: Operation Date: 09/15/22 13:10 Proposed Procedures p Posterior Lumbar Interbody Fusion:L4/5 [id number],M45.50,M79.605,M54.37(Not Applicable) - Anthony Jackson, DO Any changes to Pre-Anesthetic Assessment?: No Last Intake: Intake Last Liquid Date 09/14/22 Last Liquid Time 23:00 Last Solid Date 09/14/22 Last Solid Time 23:00 Vitals: Temperature 97.9 F 09/15/22 11:17 Temperature Source Temporal Artery S can 09/15/22 11:17 Pulse Rate 85 09/15/22 11:17 Respiratory Rate 18 09/15/22 11:17 Blood Pressure 128/92 09/15/22 11:17 Blood Pressure Bessie n 104 09/15/22 11:17 Pulse Oximetry 99 09/15/22 11:17 Oxygen Delivery Me thod 09/15/22 11:17 Exam: Pre-Anes Outpt Exam: alert, oriented x 3, clear to auscultation bilaterally and regular rate & rhythm Cardiac Studies: No Data to Display
[2022-09-15] MEDS: HYDROmorphone 1 mg/mL INJ 1 mL 0.5 MG IVP ×2 (11:55→15:55)
--- NOTE | 2022-09-15 11:55 | PM.HP ---
Providers/Chief Complaint Primary Care Provider: SARAH Kirby Chief Complaint: PLIF/L4/5 [id number],M54.37 History of Present Illness Lupe Tom is a 51 year old female low back pain with intermittent lower extremity pain. Patient was sent for MRI of the lumbar spine and is here to go over results.? Historically patient? underwent a L4/5 bilateral laminectomy with partial facetectomies.?DOS:02/20/21. Patient states that she improved following the surgery until she had a fall approximately 4 months ago. Patient was evaluated by our clinic at that time. Patient was informed that she would need surgery to improve her symptoms however surgery was denied by the insurance company due to patient being a current smoker. Patient informs us today that she has been smoke free for 3 weeks. Patient states the pain continues to the lower back and has graduated to the lower legs and increased in the pain. Patient states that the pain affect her daily activities. Patient has pain with walking especially long distances. Patient has pain that affects her sleeping at night. Patient is here today for further evaluation and to discuss surgery. Review of Systems Const: Denies: fever(s) or chills Eyes: Denies: change in vision Card: Denies: chest pain, palpitations, swelling of feet/ankles, lightheadedness, dyspnea on exertion or orthopnea Resp: Denies: dyspnea, productive cough or non-productive cough GI: Denies: abdominal pain, nausea or vomiting Musc: Reports: joint pain; Denies: neck pain or back pain Neuro: Denies: headache(s) or dizziness Psych: Reports: anxiety; Denies: depression Reagan/Lymph: Denies: easy bruising or easy bleeding Medications/Allergies Home Medications Medication Instructions Recorded Confirmed Last Taken Type aspirin 81 mg tablet,delayed 81 mg PO DAILY 12/28/19 09/08/22 09/06/22 History release (Aspir-) atorvastatin 40 mg tablet 40 mg PO DAILY 12/28/19 09/08/22 09/06/22 History carvedilol 3.125 mg tablet 3.125 mg PO BID 12/28/19 09/08/22 09/06/22 History clopidogrel 75 mg tablet 75 mg PO DAILY 12/28/19 09/08/22 09/06/22 History gemfibrozil 600 mg tablet (Lopid) 600 mg PO BID 12/28/19 09/15/22 09/14/22 14:00 History venlafaxine 75 mg capsule,extended 75 mg PO DAILY 12/28/19 09/08/22 08/25/22 History release 24 hr nitroglycerin 0.4 mg sublingual 0.4 mg sublingual Q5M PRN Pain #30 07/01/22 09/08/22 Unknown Rx tablet tabs Intraoperative Neuromonitoring #1 ea 09/15/22 Unknown Rx Allergies Allergy/AdvReac Type Severity Reaction Status Date / Time amoxicillin Allergy ADR-Itching Verified 09/08/22 10:28 sumatriptan Allergy ALGY-Anaphy Verified 09/08/22 10:28 laxis adhesive tape AdvReac itchy Verified 09/08/22 10:28 PFSH Acute PFSH: Medical History Coronary artery disease Dyslipidemia HTN (hypertension) Obesity Sleep apnea Tobacco use disorder Surgical History S/P cholecystectomy S/P coronary artery stent placement S/P total abdominal hysterectomy Family History Other Carotid artery stenosis Hypertension Social History (Updated 08/03/22 @ 08:10 by Claudia Aguilar LPN) Smoking and tobacco status: former smoker Quit status (tobacco): has quit using tobacco Second hand smoke exposure: No Smoking risk assessment/counseling performed?: Yes Tobacco counseling given: provider counseling Alcohol intake: never Caregiver/support person: Yes Lives independently: Yes History of recent travel: No Vitals/I&O/Wt Last Vital Signs Temp 97.9 F 09/15/22 11:17 Pulse 85 09/15/22 11:17 Resp 18 09/15/22 11:17 BP 128/92 09/15/22 11:17 Pulse Ox 99 09/15/22 11:17 O2 Del Method 09/15/22 11:17 Physical Exam Narrative: CONSTITUTIONAL: The patient is a normal appearing [] in no apparent distress. GENERAL: Patient in no acute distress. CARDIAC: Regular rate and rhythm. CHEST: Normal inspiratory effort, normal respiratory rate. ABDOMEN: Soft and nontender. SKIN: Clear, warm and intact. NEURO?PSYCH: The patient is alert and oriented to person, place and time. Sensorv /SILT Motor StrengthShoulder abduction C5 5/5Wrist extension C6 5/5Elbow extension C7 5/5Hand Paper Machine Supervisor C8 5/5Finger abduction T15/5 Radial/ Ulnar/ Median n intact LowerSensory (SILT)Motor StrengthHin flexion L2/3Ant/inner thigh 5/5Hip adduction L2/3 5/5Knee extension L4 Lat thigh, 5/5Toe dorsiflexion L5 5/5Ankle dorsiflexion L5/ Q92Mqbgssj flexion S1 5/5 DTRBleeps 2+Triceps 2+Brachioradialis 2+Patellar 2+Achilles 2+ MUSCULOSKELETAL: [] UPPEREXTREMITIES: The patient had full active ROM in fingers, wrist, elbow, and shoulder. The patient demonstrated ability to fully flex/extend/abduct/adduct fingers, make ok sign, cross 2nd/3rd digits, extend 1st digit fully.. Radial pulse 2+, CR<2 seconds. LOWER EXTREMITIES: Pt has full, active ROM of toes, ankle, knee, and hip. Dorsalis pedis/posterior tibialis pulses 2+, CR<2 seconds. SPINE: Skin warm, dry, intact. A&P Assessment and plan (1) Low back pain radiating to left lower extremity: L4/5 PLIF Attestations Medical Necessity Statement*: failed conservative tx Coding Level of Care Code Acute Code for Chg Fwd Diagnoses Low back pain radiating to left lower extremity M54.50; M79.605
[2022-09-15] MEDS: clindamycin 900 MG/50 ML PREMIX 100 MG IV (12:22)
--- NOTE | 2022-09-15 13:21 | P.ANESUD_ITS ---
Pre-Anesthetic Update Pre-Anesthetic Assessment: Date of Surgery/Procedure: 09/15/22 Preop Breonna gnosis: DDD Lumbar spine Proposed Procedure: Operation Date: 09/15/22 13:10 Proposed Procedures p Posterior Lumbar Interbody Fusion:L4/5 [id number],M45.50,M79.605,M54.37(Not Applicable) - Anthony Jackson, DO Any changes to Pre-Anesthetic Assessment?: No Last Intake: Intake Last Liquid Date 09/14/22 Last Liquid Time 23:00 Last Solid Date 09/14/22 Last Solid Time 23:00 Vitals: Temperature 97.9 F 09/15/22 11:17 Temperature Source Temporal Artery S can 09/15/22 11:17 Pulse Rate 85 09/15/22 11:17 Respiratory Rate 18 09/15/22 11:17 Blood Pressure 128/92 09/15/22 11:17 Blood Pressure Bessie n 104 09/15/22 11:17 Pulse Oximetry 99 09/15/22 11:17 Oxygen Delivery Me thod 09/15/22 11:17 Exam: Pre-Anes Outpt Exam: alert, oriented x 3, clear to auscultation bilaterally and regular rate & rhythm Cardiac Studies: No Data to Display
[2022-09-15] MEDS: heparin, porcine 1,000 unit/mL INJ 10 mL 10000 UNIT IRRIGATION (13:26)
[2022-09-15] MEDS: vancomycin 1,000 MG SDV 1000 MG XX (13:26)
--- NOTE | 2022-09-15 14:53 | P.OP_ITS ---
Operative Report Date of procedure: September 15, 2022 Pre-op diagnosis: Preop Diagnosis DDD Lumbar spine Post-op diagnosis: same Procedure done: 1. L4/5 Interbody fusion with posterolateral fusion 2. Instrumentation L4/5 3. Cage at L4/5 4. Laminectomy L4 5. use of autograft from same incision 6. allograft 7. Bone marrow aspirate from right iliac crest 8. use of computer navigation /stereo tactic spine Surgeon: Anthony Jackson Pig Machine Operator: Nagi Sow Pig Machine Operator: The surgical coordinator, Nagi Sow, PAC was needed for his expertise under the microscope. He was important and necessary throughout the procedure to complete in a safe and timely manner. He assisted with patient positioning prepping and draping tissue retraction suctioning of the operative field protection of the dural sac and tissue closure Estimated blood loss (mL): 400 Procedure: 1. L4/5 Interbody fusion with posterolateral fusion 2. Instrumentation L4/5 3. Cage at L4/5 4. Laminectomy L4 5. use of autograft from same incision 6. allograft 7. Bone marrow aspirate from right iliac crest 8. use of computer navigation /stereo tactic spine Patient is brought to the operative suite. After undergoing anesthesia, the patient had neuro monitoring attached. Patient was then placed in the prone position on the Leobardo table. All areas of impingement were well-padded. Patient was then prepped and draped in the normal sterile fashion. Skin incision was then made over the L 4/ 5 space. Subperiosteal dissection was made out to the transverse processes of L4 and L5. The [employer] bone marrow aspirate kit was used to aspirate bone marrow aspirate from right iliac crest. This was done by using the sharp probe to open up the b one. Aspiration was performed and then the blunt probe was then used to dissect down to through the bone tunnel. An aspirating well drawn back a millimeter approximately 20 cc of bone marrow aspirate was used. Admixed with the allograft and autograft bone that will be used. Next attention was brought to placing the fiducial. This was done by placing 2 pins in the right iliac crest. Pins were later removed at the end of the case. Once pins were placed the fiducial was attached. C-arm was brought in and information from the C-arm was brought into the computer and this was used for placing the computer navigated screws. The technique for placing the pedicle screws was to use a drill followed by the gearshift probe linked to computer navigation. Followed by the ball probe to feel the superior inferior medial lateral sutton of the pedicles. Then placement of the screws using the computer navigation. Was done at each pedicle. Screws were placed at L4 bilaterally and L5. Next attention was brought to performing the laminectomy ofL4. This was done using the high-speed bur Kerrisons and curettes. Once the lamina was removed and then attention was brought to performing a partial facetectomy on the contralateral side. This was done again using the high-speed bur curettes and Kerrisons. The ligamentum flavum was taken down bilaterally from L4 to L5. Attention was then brought to the facet on the ipsilateral side. The facet was taken down. The L5 nerve was decompressed as it passed around the L5 pedicle. The laminectomy was done for purposes of decompressing the nerve as well as placement of the cage. The L4 nerve was identified as it traversed through the L4/5 foramen. The thecal sac was identified and retracted. The L4/5 disc base was identified. Using a knife the disc base was opened. And then sequential roselia were placed. The first shaver was a 6 and the last shaver was a 9. Using a pituitary and down going curette the endplates were scraped and disc material was removed from the space. Once adequate decompression of the disc base was felt to be had. Osteoamp sponge was packed into the anterior aspect of the disc base. Then a size 9 cage from [employer] was placed after packing osteoamp into the cage. While placing the cage the thecal sac and L5 nerve was protected. C arm was used to ensure that the cages placed in the appropriate p osition. Attention was then brought to attaching the rods to the screws placed in the L4 bilaterally and L5 bilaterally. Caps were torqued into position. Locking the construct in place. Wound was copiously irrigated and then attention was brought to decorticating the facets and transverse processes laterally. Bone that was taken down from the lamina was used along with osteoamp fibers and sponges were packed into the lateral gutters along the facet joints. This was done bilaterally. Wound was then closed in a layered fashion starting with the thoracolumbar fascia. 0-vicryl was used the sub cutaneous tissue was closed with 2-0 vicryl and skin with 4-0 monocryl. Glue was then used to seal the skin and a steril dressing was applied. Patient was then placed in the supine position. The e ndotracheal tube was removed and patient was transferred to the PACU in stable condition.
--- NOTE | 2022-09-15 14:53 | XR_ITS ---
WS: [id number] Lumbar spine, C-arm fluoroscopy views, 09/15/2022 Clinical Data: OR PICS Comparison: None. Findings: Dr. Jackson performed a posterior lumbar fusion. XR/XR lumbar spine 1V port [id number] Impression: Posterior lumbar fusion.
[2022-09-15] MEDS: fentaNYL 50 mcg/mL INJ 2mL IVP ×2 (15:22→15:40)
--- NOTE | 2022-09-15 16:02 | PC.NURSE ---
Continued pain management.
--- NOTE | 2022-09-15 16:41 | PC.NURSE ---
pain under control. Rates 3-4-5 depending on position.
--- NOTE | 2022-09-15 16:52 | ANE.PACU2 ---
Inpatient post-anesthesia follow up: Airway intact: Yes Vital signs: Temperature 97.2 F Pulse Rate 86 Respiratory Rate 13 Blood Pressure 104/76 Pulse Oximetry 93 Oxygen Delivery Me thod Nasal Cannula Oxygen Flow Rate 2 Fraction of Inspir ed Oxygen Hydration adequate: Yes Nausea and vomiting: No Pain level: 4 Mental status: Baseline
[2022-09-15] MEDS: docusate sodium 100 mg Capsule PO (17:27)
[2022-09-15] MEDS: lactated ringers 1,000 ML 90 ML IV (17:28)
[2022-09-15] MEDS: HYDROcodone-acetaminophen 5-325 mg Tablet PO (17:28)
--- NOTE | 2022-09-15 19:09 | PC.NURSE ---
Patient has done well since arriving to the floor. Surgical incision dressing C/D/I. Hemovac in place. Bilateral SCD's on. Vitals stable. Pain better controlled. Patient currently resting in bed with at bedside.
[2022-09-15] MEDS: ketorolac 30 mg/mL INJ IVP (20:08)
[2022-09-15] MEDS: ceFAZolin 2,000 MG in sodium chloride 0.9% (plus) 50 ML 100 MG IV (20:43)
[2022-09-15] MEDS: carvedilol 3.125 mg Tablet PO (20:43)
[2022-09-16] MEDS: HYDROcodone-acetaminophen 5-325 mg Tablet PO ×3 (00:08→09:30)
[2022-09-16 03:50] VITALS: BP 95/54; PULSE 104; RESP 19; TEMP 36.8; O2SAT 91
[2022-09-16] MEDS: ceFAZolin 2,000 MG in sodium chloride 0.9% (plus) 50 ML 100 MG IV (04:18)
[2022-09-16] MEDS: lactated ringers 1,000 ML 90 ML IV (04:18)
[2022-09-16 06:00] VITALS: PULSE 104
[2022-09-16 06:40] LABS: Hematocrit 37.4 % (37.0-47.0); Hemoglobin 11.9 g/dL (11.5-15.3)
--- NOTE | 2022-09-16 06:55 | PM.PN ---
Subjective Subjective: POD 1 Patient resting comfortably. Reports mild back pain improvement of leg pain. Reports slight dizziness and lightheaded feeling. Denies any chest pain, shortness of breath, headaches. Vitals/I&O/Wt Last Vital Signs Temp 98.2 F 09/16/22 03:50 Pulse 104 H 09/16/22 06:00 Resp 19 H 09/16/22 03:50 BP 95/54 09/16/22 03:50 Pulse Ox 91 09/16/22 03:50 O2 Del Method 09/16/22 03:50 O2 Flow Rate 2 09/15/22 20:19 09/15/22 09/15/22 09/16/22 14:59 22:59 06:59 Intake Total 1750 / 1750 850 / 2600 1985 / 4585 Output Total 550 / 550 460 / 1010 975 / 1985 Balance 1200 / 1200 390 / 1590 1010 / 2600 Physical Exam Narrative: Patient presents alert and oriented x3 with a good general appearance normal mood and affect. Normal coordination normal stability. Mild tenderness around the incisional site with the incision appear to be clean and dry. no signs of erythema or drainage. No signs of infection. Patient denies any fevers or chills. 5/5 motor strength both lower extremities with negative straight leg raise bilaterally. Calves are supple no medial thigh tenderness. Pulses are 2+ at the dorsalis pedis and posterior tibial region. Good capillary refill throughout normal sensation light touch both lower extremities. Urinary Catheter Management: Choe: Cath Placed During This Visit: yes Reason for Continuing Indwelling Catheter: Perioperative Use in Selected Surgeries Urinary Catheter Date of Insertion: 09/15/22 Urinary Catheter Time of Insertion: 12:35 Data 09/16/22 06:25 A&P Assessment and plan (1) Status post lumbar spinal fusion: Discontinue Choe catheter and Hemovac drain. Physical therapy to evaluate and mobilize. Continue incentive spirometry for pulmonary toilet. Discharge home. Return to clinic in 1 week for wound check. She will call if she is having problems. Attestations Medical Necessity Statement*: Discharge home today. Coding Level of Care Code Acute Code for Chg Fwd Diagnoses Status post lumbar spinal fusion Z98.1
[2022-09-16] MEDS: aspirin 81 mg EC Tablet PO (09:26)
[2022-09-16] MEDS: venlafaxine ER (24HR) 75 mg Capsule PO (09:26)
[2022-09-16] MEDS: docusate sodium 100 mg Capsule PO (09:26)
[2022-09-16] MEDS: clopidogrel 75 mg Tablet PO (09:26)
[2022-09-16] MEDS: carvedilol 3.125 mg Tablet PO (09:26)
[2022-09-16] MEDS: atorvastatin 40 mg Tablet PO (09:26)
[2022-09-16 09:37] VITALS: PULSE 104
[2022-09-16 09:42] VITALS: PULSE 114; RESP 18; O2SAT 94
== END 2022-09-16 10:10 | disposition home or self-care (01) | DRG 455 ==
LOC: MEDSURG 16:34
PROVIDERS: Physician Assistant; Admitting Provider Orthopaedic Surgery; PCP Physician Assistant Medical; Visit Provider Orthopaedic Surgery
PROC: 0SG00AJ Fusion of Lumbar Vertebral Joint with Interbody Fusion Device, Posterior Approach, Anterior Column, Open Approach (ICD-10-PCS; CPT 22612; principal; 2022-09-15 12:40)
DX: M54.42 Lumbago with sciatica, left side (principal); I25.10 Atherosclerotic heart disease of native coronary artery without angina pectoris; Z95.5 Presence of coronary angioplasty implant and graft; E78.5 Hyperlipidemia, unspecified; I10 Essential (primary) hypertension; E66.9 Obesity, unspecified; Z68.35 Body mass index [BMI] 35.0-35.9, adult; G47.30 Sleep apnea, unspecified; Z87.891 Personal history of nicotine dependence
CPT/HCPCS: 36415; 51702; 72020; 76000; 85014; 85018; 96376; 97116; 97161; C1713; J0690; J1100; J1170; J1644; J1885; J2405; J2704; J2710; J3010; J3370; J3490; J7030; J7120

== ENCOUNTER → 2022-09-21 11:10 | Outpatient (BNVA) | payer BC, SELFPAY | PROVIDERS: PCP Physician Assistant Medical; Visit Provider Physician Assistant | DX: Z98.1 Arthrodesis status (principal) | CPT/HCPCS: 85014; 85018 ==

== ENCOUNTER → 2022-09-30 08:39 | Outpatient (BNVA) | payer BC, SELFPAY | PROVIDERS: PCP Physician Assistant Medical; Visit Provider Physician Assistant | DX: Z98.1 Arthrodesis status (principal) | CPT/HCPCS: 72100 ==

== ENCOUNTER → 2022-10-28 13:55 | Outpatient (BNVA) | payer BC, SELFPAY | PROVIDERS: PCP Physician Assistant Medical; Visit Provider Physician Assistant | DX: Z98.1 Arthrodesis status (principal) | CPT/HCPCS: 72100 ==

== ENCOUNTER → 2022-12-16 13:06 | Outpatient (BNVA) | payer BC, SELFPAY | PROVIDERS: PCP Physician Assistant Medical; Visit Provider Physician Assistant | DX: Z98.1 Arthrodesis status (principal) | CPT/HCPCS: 72100 ==

== ENCOUNTER → 2023-03-02 09:18 | Outpatient (BNVA) | payer BC, SELFPAY | PROVIDERS: PCP Physician Assistant Medical; Visit Provider Physician Assistant | DX: M54.50 Low back pain, unspecified; R07.81 Pleurodynia; W18.41XA Slipping, tripping and stumbling without falling due to stepping on object, initial encounter | CPT/HCPCS: 72100 ==

== ENCOUNTER → 2023-04-14 08:23 | Outpatient (BNVA) | payer BC, SELFPAY | PROVIDERS: PCP Physician Assistant Medical; Visit Provider Orthopaedic Surgery | DX: Z98.1 Arthrodesis status (principal); R29.6 Repeated falls; S32.029A Unspecified fracture of second lumbar vertebra, initial encounter for closed fracture; X58.XXXA Exposure to other specified factors, initial encounter; M41.9 Scoliosis, unspecified; M85.88 Other specified disorders of bone density and structure, other site | CPT/HCPCS: 72100 ==

== ENCOUNTER 2023-05-10 11:28 | Outpatient (CLI) | payer BC, SELFPAY ==
--- NOTE | 2023-05-10 11:45 | MR_ITS ---
WS: [id number] MRI LUMBAR SPINE NONCONTRAST TECHNIQUE: Sagittal T1, T2 and STIR imaging. Axial T1 and T2 imaging. CLINICAL INFORMATION: increase in pain COMPARISON: MRI 06/08/2022 FINDINGS: Mild lumbar curve. No acute compression. Prior pedicle screw fixation L4-5 with interbody fusion kaela ts and laminectomy defects. L1-L2: No significant disc bulging. Mild facet arthropathy. Spinal canal and foramen are patent. L2-L3: Mild annular bulging. Slight narrowing of the subarticular recess bilaterally. Mild facet arth ropathy. Spinal canal and foramen are patent. L3-L4: Mild annular bulging. Moderate facet arthropathy. Spinal canal and foramen are patent. L4-L5: Prior postoperative changes pedicle screw fixation with interbody fusion graft. LEFT foraminot petra. Spinal canal is patent. L5-S1: Mild annular bulging. Slight effacement of the ventral thecal sac. Moderate facet arthropathy with small facet effusions. Mild RIGHT and no significant LEFT foraminal narrowing. Visualized pelvic bony structures: Normal. Paravertebral soft tissues: Normal. IMPRESSION: 1. Postoperative changes pedicle screw fixation L4-5 with interbody fusion graft is new since 022. 2. No recurrent central canal stenosis. 3. Postoperative changes LEFT L4-5 foraminotomy. 4. Mild disc bulging L5-S1 with mild RIGHT L5-S1 foraminal narrowing unchanged. 5. Slight narrowing of the subarticular recess L2-3. 6. Moderate facet arthropathy L5-S1.
== END 2023-05-10 11:29 | disposition home or self-care (01) ==
PROVIDERS: PCP Physician Assistant Medical; Visit Provider Orthopaedic Surgery
DX: Z98.1 Arthrodesis status (principal); R29.6 Repeated falls; M51.37 Other intervertebral disc degeneration, lumbosacral region; M48.07 Spinal stenosis, lumbosacral region; M47.817 Spondylosis without myelopathy or radiculopathy, lumbosacral region
CPT/HCPCS: 72148

== ENCOUNTER → 2023-07-19 08:08 | Outpatient (BNVA) | payer BC, SELFPAY | PROVIDERS: PCP Physician Assistant Medical; Visit Provider Physician Assistant | DX: Z98.1 Arthrodesis status (principal) | CPT/HCPCS: 72100 ==

== ENCOUNTER → 2025-03-04 13:14 | Outpatient (BNVA) | payer BC, SELFPAY | PROVIDERS: PCP Physician Assistant Medical; Visit Provider Podiatrist Foot & Ankle Surgery | DX: M79.671 Pain in right foot (principal); M79.672 Pain in left foot; M72.2 Plantar fascial fibromatosis | CPT/HCPCS: 73630 ==

== ENCOUNTER → 2025-03-14 12:57 | Outpatient (BNVA) | payer BC, SELFPAY | PROVIDERS: PCP Physician Assistant Medical; Visit Provider Orthopaedic Surgery | DX: Z98.1 Arthrodesis status (principal); M54.50 Low back pain, unspecified; G89.29 Other chronic pain | CPT/HCPCS: 72110 ==

== ENCOUNTER 2025-03-20 09:59 | Outpatient (CLI) | payer BC, SELFPAY ==
--- NOTE | 2025-03-20 10:00 | USR_ITS ---
PROCEDURE INFORMATION: Exam: US Bilateral Noninvasive Physiologic Study of the Lower Extremity Arteries, Limited Exam date and time: 03/20/2025 9:48 AM Age: 54 years old Clinical indication: Pain; Leg, lower; Bilateral; Additional info: Bilat leg pain TECHNIQUE: Imaging protocol: Bilateral Limited bilateral noninvasive physiologic studies of lower extremity arteries. Waveforms were obtained and evaluated. Images were documented and archived. Exam is limited. COMPARISON: [place] [id number] ORTH 03/04/2025 1:20 PM FINDINGS: Right Ankle-Brachial Index: 0.78 Left Ankle-Brachial Index: 0.79 US/CV ankle brachial index [id number] IMPRESSION: Mildly decreased DARIUSZ bilaterally suggesting the possibility of significant bilateral arterial disease
--- NOTE | 2025-03-20 12:15 | USCV_ITS ---
Lupe Tom Age: 54 Gender: F : 1970 Exam Date: 03/20/2025 10:34 Ordering Phys: Armando Cabral MD ([email or web address]) Technologist: MICHAEL Exam Location: [facility] [place] Indication: bruit Risk Factors: Previous Vascular Surgery: Right Brachial BP: / Left Brachial BP: / Right Left Velocity (cm/s) Spectral Plaque Velocity (cm/s) Spectral Plaque Syst/Diast Broadening Syst/Diast Broadening 73.70/ 23.20 Prox CCA 60.50 / 17.70 75.00/ 23.20 Mid CCA 56.40 / 18.90 55.80/ 21.90 Distal CCA 50.00 / 18.70 66.20/ 20.90 Prox ICA 47.40 / 15.90 53.30/ 27.00 Mid ICA 19.40 / 8.60 57.00/ 28.30 Distal ICA 13.90 / 6.70 82.10 ECA 59.40 1.20 ICA/CCA 0.90 Antegrade Vertebral Antegrade 30.80/ 12.00 cm/s 36.20/ 9.70 cm/s Tri Subclavian Tri 68.30 95.10 FINDINGS Comparison:. 06/02/16 No significant elevation of systolic or diastolic velocities. Waveforms are normal. Mixture of calcified and noncalcified plaque in the bifurcations. CONCLUSIONS Bilateral ICA stenosis less than 50%. No interval change in stenosis since prior exam. Dr. Manuela Arias DO (Electronically Signed) Final Date: 20 March 2025 14:19 S
== END 2025-03-20 10:00 | disposition home or self-care (01) ==
PROVIDERS: PCP Physician Assistant Medical; Visit Provider Internal Medicine Cardiovascular Disease
DX: M79.604 Pain in right leg (principal); M79.605 Pain in left leg; I25.84 Coronary atherosclerosis due to calcified coronary lesion; I65.23 Occlusion and stenosis of bilateral carotid arteries; R93.6 Abnormal findings on diagnostic imaging of limbs
CPT/HCPCS: 93880; 93922

== ENCOUNTER 2025-04-16 14:06 | Outpatient (CLI) | payer BC, SELFPAY ==
--- NOTE | 2025-04-16 14:15 | CTR_ITS ---
PROCEDURE INFORMATION: Exam: CTA Abdominal Aorta and Bilateral Lower Extremities (Run-off) With Contrast Exam date and time: 04/16/2025 2:27 PM Age: 54 years old Clinical indication: Other: RT leg pain; Prior surgery; Surgery date: 6+ months; Surgery type: Heart stent x 4, gb, hyst, RT foot, back, tummy tuck; Right leg pain x 2 months; Additional info: Leg pain; Abnormal josias TECHNIQUE: Imaging protocol: Computed tomographic angiography of the of the abdominal aorta, pelvis and bilateral lower extremities with contrast. 3D rendering (Not supervised by radiologist): MIP and/or 3D reconstructed images were created by the technologist. Radiation optimization: All CT scans at this facility use at least one of these dose optimization techniques: automated exposure control; mA and/or kV adjustment per patient size (includes targeted exams where dose is matched to clinical indication); or iterative reconstruction. Contrast material: OMNIPAQUE 350; Contrast volume: 125 ml; Contrast route: INTRAVENOUS (IV); COMPARISON: CT abdomen pelvis w con* [id number] 05/22/2018 3:43 PM RADIATION DOSE METRICS: Total DLP (mGy-cm): 1804.58 FINDINGS: Aorta: No aortic aneurysm. Moderate soft calcified plaque in the distal aorta. Celiac trunk and mesenteric arteries: No occlusion or significant stenosis. Renal arteries: No occlusion or significant stenosis. An accessory right renal artery is noted. Right iliac arteries: No occlusion or significant stenosis. Right femoral/popliteal arteries: The right SFA is occluded from its origin to the mid thigh. A 7.5 cm segment of the distal right SFA is reconstituted and then occludes to the popliteal artery. Right popliteal artery is patent. Tibioperoneal trunk, posterior tibial artery and anterior tibial artery are patent. The peroneal artery is moderately diseased distally and occludes before the ankle. Right infrapopliteal arteries: No occlusion or significant stenosis. Left iliac arteries: Focal severe stenosis of the origin of the left common iliac artery, estimated at 80% diameter. Left femoral/popliteal arteries: No occlusion or significant stenosis. Left infrapopliteal arteries: No occlusion or significant stenosis. Lungs: Lung bases are clear. Coronary arteries: Coronary artery calcifications are present. Liver: The liver is enlarged 20 cm. No liver mass or abnormal arterial phase enhancement noted. Gallbladder and biliary ducts: Post cholecystectomy. There is no evidence of biliary ductal dilation. Pancreas: The pancreas is normal. No mass. Shortened pancreatic tail again noted. Spleen: Limited assessment due to arterial phase enhancement. No splenomegaly. Adrenal glands: The adrenal glands are normal. Kidneys and ureters: No renal mass or hydronephrosis. Stomach and bowel: Bowel caliber is normal. No paracolonic inflammatory changes. Appendix: Normal appendix. Urinary bladder: No focal wall thickening of the urinary bladder. Elongated urachal ligament is noted. Reproductive: Unchanged small size of the uterus, possible partial hysterectomy. No adnexal masses. Intraperitoneal space: No significant peritoneal free fluid. No free peritoneal air. Lymph nodes: No lymph node enlargement. Bones/joints: Interval development [id number] L2 compression fracture. Interval laminectomy and fusion at the L4-L5 disc level osteitis pubis again noted. Soft tissues: Unremarkable. CT/CT angio abd aorta runof [id number] IMPRESSION: 1. Severe origin stenosis of the left common iliac artery. No other left lower extremity arterial stenoses. 2. Occluded right superficial femoral artery, which is briefly reconstituted in the distal thigh. Popliteal artery and right calf arteries remain patent 3. Interval L2 compression fracture of indeterminate age.
[2025-04-16] MEDS: iohexol 350 mg/mL 500 mL Btl (per mL) IV (14:48)
== END 2025-04-16 14:07 | disposition home or self-care (01) ==
LOC: RAD 14:06
PROVIDERS: PCP Physician Assistant Medical; Visit Provider Internal Medicine Cardiovascular Disease
DX: R68.89 Other general symptoms and signs (principal)
CPT/HCPCS: 75635

== ENCOUNTER 2025-04-22 15:16 | Outpatient (CLI) | payer BC, SELFPAY ==
--- NOTE | 2025-04-22 15:30 | XR_ITS ---
WS: [id number] DEXA (DUAL ENERGY X-RAY ABSORPTIOMETRY) Bone mineral density was performed using a [employer] machine. HISTORY: see below COMPARISON: None available. Left forearm BMD: 0.865 g/cm2. T score: -0.1 Z score: 0.2 Total hip BMD: Left: 0.709 g/cm2. T score: -2.4 Z score: -2.5 Right: 0.729 g/cm2. T score: -2.2 Z score: -2.3 10 year probability of a major osteoporotic fracture is 6.7%. XR/XR DEXA axial skeleton* [id number] IMPRESSION: OSTEOPENIA based upon the WHO classification for females.
== END 2025-04-22 15:17 | disposition home or self-care (01) ==
PROVIDERS: PCP Physician Assistant Medical; Visit Provider Internal Medicine
DX: I73.9 Peripheral vascular disease, unspecified (principal); R53.83 Other fatigue; I25.10 Atherosclerotic heart disease of native coronary artery without angina pectoris; M77.50 Other enthesopathy of unspecified foot and ankle; M94.0 Chondrocostal junction syndrome [Tietze]; M85.80 Other specified disorders of bone density and structure, unspecified site
CPT/HCPCS: 77080

== ENCOUNTER 2025-04-23 07:55 | Outpatient (CLI) | payer BC, SELFPAY ==
[2025-04-23 08:39] LABS: Hematocrit 45.5 % (36-47); Hemoglobin 15.50 g/dL (11.27-16.99); Mean Corpuscular HGB Conc 34.1 g/dL (30-55); Mean Corpuscular Hemoglobin 32.0 pg (27-33); Mean Corpuscular Volume 94.0 fl (85-98); Nucleated Red Blood Cells % 0 %; Platelet Count 230 10^3/cmm (157-399); Red Blood Count 4.84 10^6/uL (3.85-5.65); White Blood Count 9.08 10^3/uL (3.29-11.43)
[2025-04-23 09:11] LABS: Free T4 Free Thyroxine 1.25 ng/dL (0.82-1.77); Thyroid Stimulating Hormone 4.08 uIU/mL (0.27-4.20)
[2025-04-23 09:32] LABS: Iron 115 ug/dL (37-145)
== END 2025-04-23 07:56 | disposition home or self-care (01) ==
PROVIDERS: PCP Physician Assistant Medical; Visit Provider Internal Medicine
DX: R53.83 Other fatigue (principal); I73.9 Peripheral vascular disease, unspecified; I25.10 Atherosclerotic heart disease of native coronary artery without angina pectoris; M77.50 Other enthesopathy of unspecified foot and ankle; M94.0 Chondrocostal junction syndrome [Tietze]
CPT/HCPCS: 36415; 82306; 82533; 83540; 84305; 84439; 84443; 85025; 86376; 86800

== ENCOUNTER 2025-05-01 07:51 | Outpatient (CLI) | payer BC, SELFPAY ==
[2025-05-01 09:27] LABS: Alanine Aminotransferase 13 U/L (0-33); Albumin Level 4.2 g/dL (3.5-5.2); Alkaline Phosphatase 96 U/L (35-105); Blood Urea Nitrogen 10 mg/dL (6-20); Calcium 9.0 mg/dL (8.5-10.5); Carbon Dioxide 26 mmol/L (22-29); Chloride 101 mmol/L (98-107); Free T4 Free Thyroxine 1.47 ng/dL (0.82-1.77); Globulin 2.7 g/dL (1.3-4.6); Glucose 163 mg/dL (65-115); Osmolality Calculated 293 mOsm/kg (285-295); Sodium 140 mmol/L (136-145); Thyroid Stimulating Hormone 2.40 uIU/mL (0.27-4.20); Total Protein 6.9 g/dL (6.6-8.7)
[2025-05-01 09:32] LABS: Anion Gap 17.1 (5-19); Aspartate Amino Transferase 14 U/L (0-32); Potassium 4.1 mmol/L (3.5-5.1)
[2025-05-01 09:35] LABS: Calcium 9.1 mg/dL (8.5-10.5)
== END 2025-05-01 07:52 | disposition home or self-care (01) ==
LOC: LAB 07:54
PROVIDERS: PCP Physician Assistant Medical; Visit Provider Internal Medicine
DX: E66.9 Obesity, unspecified (principal); R53.83 Other fatigue; M85.80 Other specified disorders of bone density and structure, unspecified site
CPT/HCPCS: 36415; 80053; 82306; 82310; 83970; 84439; 84443

== ENCOUNTER 2025-05-14 13:46 | Outpatient (CLI) | payer BC, SELFPAY ==
[2025-05-14 15:14] LABS: Alanine Aminotransferase 14 U/L (0-33); Albumin Level 4.2 g/dL (3.5-5.2); Alkaline Phosphatase 103 U/L (35-105); Blood Urea Nitrogen 11 mg/dL (6-20); Calcium 9.2 mg/dL (8.5-10.5); Carbon Dioxide 27 mmol/L (22-29); Chloride 100 mmol/L (98-107); Globulin 2.8 g/dL (1.3-4.6); Glucose 86 mg/dL (65-115); Osmolality Calculated 291 mOsm/kg (285-295); Sodium 141 mmol/L (136-145); Total Protein 7.0 g/dL (6.6-8.7)
[2025-05-14 15:16] LABS: Anion Gap 18.1 (5-19); Aspartate Amino Transferase 12 U/L (0-32); Potassium 4.1 mmol/L (3.5-5.1)
== END 2025-05-14 13:47 | disposition home or self-care (01) ==
LOC: LAB 13:47
PROVIDERS: Internal Medicine; PCP Physician Assistant Medical; Visit Provider Internal Medicine Cardiovascular Disease
DX: E11.9 Type 2 diabetes mellitus without complications (principal); M81.0 Age-related osteoporosis without current pathological fracture
CPT/HCPCS: 36415; 80053; 82306

== ENCOUNTER 2025-05-17 05:45 | Outpatient (CLI) | payer BC, SELFPAY ==
[2025-05-17] VITALS (15 sets, daily range): BP systolic 104–132; BP diastolic 65–76; PULSE 52–89; RESP 10–20; TEMP 36.8; O2SAT 97; BMI 34.0
--- NOTE | 2025-05-17 07:00 | XACV_ITS ---
Exam Room: 2 Ht: 168 cm Wt: 96 kg BSA: 2.15 m2 Gender: Female : 1970 Any Known Allergies: Other Exam Priority: Routine Procedure(s): Procedure Description: Diagnostic procedure Procedure Description: Peripheral Cath Diagnostic Procedure Procedure Description: Lower extremities' angiography Procedure Description: Peripheral vascular Intervention Procedure Description: PV Stent Procedure Description: Miscellaneous Procedure Description: Aortic Arch Angiography Asif Gutierrez MD; Marianna HOLLIS; Diagnostic Cath Status: Elective PCI Status: Elective Interventional Findings * For lifestyle-limiting claudication and vocational claudication left common iliac proximal high-grade stenosis were treated through left short 6 Slovenian sheath using shockwave 7.0 x 135 cm delivering multiple pulses to break the calcium. It was followed by Lifestream covered stent 8 x 37 mm posted at high atmospheric. Excellent angiographic result with good flow was noted. No complication noted. Lower Extremity Diagnostic Findings Indication for peripheral angiogram: Lifestyle-limiting claudicationEquipment used: Pigtail, right radial sheath, left common femoral sheath, seeker catheterIt was difficult access as because of high BMI patient common femoral artery was very deep, we first took abdominal aortogram using right radial approach, pigtail catheter was placed in the lower part of the abdominal aortaAbdominal aortogram through digital subsection was suggestive of moderate abdominal aortic aneurysm because of a lot of hardware images were suboptimalLeft common femoral artery has proximal high-grade stenosis Left internal iliac artery has luminal irregularity without significant stenosis Left common femoral artery has luminal irregularity without significant stenosis Left SFA has luminal irregularity without significant stenosis Left profundofemoral artery has luminal irregularity without significant stenosis Left popliteal artery has luminal irregularity without significant stenosis Left popliteal artery has luminal irregularity without significant stenosis Left anterior tibial artery has diffuse disease but appear to be patent Left posterior tibial artery appeared to be patent in the proximal segment may be timing out of contrast cannot traced down to its further course. Left peroneal artery appeared to be occluded in proximal segment Using abdominal aortogram with the help of pigtail catheter in the lower abdominal aorta right lower extremity runoff was obtainedRight common iliac patent Right external iliac patent Right internal iliac patent Right common femoral patent Right profundofemoral patent Right SFA chronically occluded at the ostium then it fills from the profunda near the adductor canal for short segment Right popliteal artery appeared to be chronically occluded Right tibial peroneal trunk appeared to be chronically occluded Right anterior tibial appeared to be chronically occluded Right posterior tibial appeared to be chronically occluded Right peroneal appeared to be chronically occluded. Recommendations 1-Return to inpatient for close monitoring and routine cath care 2-Risk factor modification for secondary prevention 3-Statin and aspirin 81 mg life-long, if tolerated 4-Patient was pre-loaded with 300 mg of Plavix, continue Plavix 75mg p.o. daily for three months. We will assess at the end of one year again to continue if further or not 5-Continue optimal medical management 6-Follow up with Dr. Cabral in four weeks and your primary care in 10. Pressures Phase:Rest AO : 131 / 70 ( 91 ) @ 9:40:00 AM 105 / 73 ( 88 ) @ 9:47:00 AM 96 / 67 ( 81 ) @ 10:17:00 AM 105 / 71 ( 88 ) @ 10:33:00 AM 127 / 86 ( 106 ) @ 10:43:00 AM Hemodynamic Data Phase:Rest AO : 131.0 / 70.0 ( 91.0 ) @ 9:40:00 AM 105.0 / 73.0 ( 88.0 ) @ 9:47:00 AM 96.0 / 67.0 ( 81.0 ) @ 10:17:00 AM 105.0 / 71.0 ( 88.0 ) @ 10:33:00 AM 127.0 / 86.0 ( 106.0 ) @ 10:43:00 AM Clinical Evaluation EBL: 5mL-10mL Procedural Details Procedure Consent Obtained. Pre-Procedure Time Out. Identified patient by full name and date of as verbalized by the patient/guarantor. Does the consent match the physician's order: Yes. Accurate & Complete Informed Consent: Yes. Inpatient/Outpatient History & Physical on Chart: Yes. If H&P is completed, is and addenduem needed: No. Visualize and Verify Site with Patient/Guarantor: N/A. Relevant Radiology Images available: Yes. The risks, benefits, and alternatives of sedation and/or procedure were discussed by physician. The patient agrees to continue. Procedure started. Current diagnosis: PVD. PERRLA. Strong, equal hand bath design sales consultant bilaterally. Lungs clear x 5 lobes. IV Site on Arrival: 20 gauge in the right wrist. IV Fluids: 0.9% NaCl at KVO. 0 mL infused prior to distillery laborer. Pre Procedural Pulses: bilateral posterior tibial was Doppled. Pre Procedural Pulses: right dorsalis pedis was Doppled. Pre Procedural Pulses: left dorsalis pedis was 1+. Oxygen started at 2liters/min via nasal canula. bilateral groins was prepped with chloroprep then draped in the usual sterile fashion. Physician notified. Baseline sample Acquired. HR: 58 BPM. Patient's family in the distillery laborer waiting room. Dr. Cabral will update at the completion of the procedure. Equipment: 6F - Femoral. Cardiac Cath Pack. ACIST Manifold Kit Model BT 2000. Heparinized Saline (2 units/mL), 1000 mL bag. Kit, Micropuncture. Physician arrived. Physician scrubbed in. Immediate Pre-Procedure Time Out. Correct Patient: Yes; Correct Procedure: Yes; Correct Site: Yes; Correct Patient Position: Yes; Correct Supplies: Yes; Dried Flammable Prep: Yes; Blood Products Available: N/A;. Lidocaine 1% infiltrated to the left groin. Lidocaine 1% infiltrated to the left groin. Ultrasound called to assist with arterial access. Ultrasound here. Arterial access obtained with micropuncture set using ultrasound guidance. Unable to thread micropuncture wire. Wire and needle out. Dr. Cabral holding manual pressure. Arterial access obtained with micropuncture set using ultrasound guidance. Unable to thread micropuncture wire. Wire and needle out. Dr. Cabral holding manual pressure. Aborting Femoral access. Will move to right radial. The existing PIV in the right wrist was discontinued with cath tip intact. A 22 gauge IV was started in the left wrist using aseptic technique. right radial was prepped with chloroprep then draped in the usual sterile fashion. Lidocaine 1% infiltrated to the right radial. Arterial access obtained. A 5 kyrgyz 125cm straight Pig catheter in over the exchange J wire. Pigtail postioned above the bifurcation of the iliacs. Aortagram performed @ 10 mL/sec for a total of 30 mL in DSA. Right common iliac selected and arteriogram with runoff performed @ 10 mL/sec for a total of 30 mL. Left common iliac selected and arteriogram with runoff performed @ 10 mL/sec for a total of [address] Cabral scrubbed out to view cineography. Dr. Cabral scrubbed back in. Pigtail postioned above the bifurcation of the iliacs. Aortagram performed @ 10 mL/sec for a total of 30 mL in DSA. Pigtail postioned above the bifurcation of the iliacs. Aortagram performed @ 10 mL/sec for a total of [address] Gutierrez scrubbed in to assist with femoral access. Ramila Frank RT (R) in to scrub for Michele Klein RN, BAG MACHINE SET UP OPERATOR. Arterial access obtained with micropuncture set. Lidocaine 1% infiltrated to the left groin. 0.035 x 260cm stiff angled glidewire in through the sheath. Seeker support catheter in over the glidewire. Glidewire out. 0.014 x 190cm BMW guidewire in through the Seeker. Seeker support catheter out over the BMW. Left common femoral selected and arteriogram with runoff performed @ 10 mL/sec for a total of 20 mL. Seeker support catheter in over the BMW. BMW wire out, 0.014 x 300cm Runthrough guidewire in. Seeker support catheter out over the Runthrough. Shockwave M 5+ Peripheral Intravascular Lithotripsy Catheter in OTW. Inflation number : 1 A Shockwave M5 7.0mm x 60mm IVL was prepped and advanced across the Common Iliac, Left , then inflated to 4 CYNTHIA for 0:49 seconds. Inflation number: 2 The Shockwave M5 7.0mm x 60mm IVL was reinflated across the Common Iliac, Left, to 4 CYNTHIA for 0:23 seconds. Inflation number: 3 The Shockwave M5 7.0mm x 60mm IVL was reinflated across the Common Iliac, Left, to 4 CYNTHIA for 0:16 seconds. Inflation number: 4 The Shockwave M5 7.0mm x 60mm IVL was reinflated across the Common Iliac, Left, to 4 CYNTHIA for 0:43 seconds. Balloon out over wire. Shockwave M 5+ Peripheral Intravascular Lithotripsy Catheter in OTW. Inflation number: 5 The Shockwave M5 7.0mm x 60mm IVL was reinflated across the Common Iliac, Left, to 4 CYNTHIA for 1:31 seconds. Inflation number: 6 The Shockwave M5 7.0mm x 60mm IVL was reinflated across the Common Iliac, Left, to 4 CYNTHIA for 1:49 seconds. Inflation number: 7 The Shockwave M5 7.0mm x 60mm IVL was reinflated across the Common Iliac, Left, to 4 CYNTHIA for 1:24 seconds. Balloon out over wire. Seeker support catheter in OTW. Runthrough out, exchange J wire in. Sheath upsized to a 7 Fr. BArd Lifestream Balloon Expandable Covered Stent in OTW. Inflation Number : 8 A Bard LifeStream Balloon Expandable Vascular Covered stent 8.0mm x 37mm -Lot Number# [id number] was prepped and advanced across the Common Iliac, Left. The stent was deployed at 8 CYNTHIA for 1:07 seconds. Stent balloon out over wire. Results checked. Sheath injected in Left common femoral artery and runoff performed at 10ml/sec for a total of 30mL. Exchange J wire out. 5 Fr 125cm straight Pigtail out over the exchagne J wire. Dr. Cabral scrubbed out. A TR Band was successful obtaining hemostatsis at the Right Radial artery insertion site. A Suture was successful obtaining hemostatsis at the Left Femoral artery insertion site. Sheath(s) sutured into position with 2-0 silk and sterile 4x4's and Op-site applied over the site. No oozing or signs and symptoms of hematoma noted. Arterial sheath flushed and connected to tranducer and pressure bag with heparinized saline. Post Procedure: Pulses reassessed and unchanged. PERRLA. Strong, equal hand bath design sales consultant bilaterally. No VTE prophylaxis required. Medication's Wasted: Nitro = 49.8 mg. Medication's Wasted: Heparin = 1000 units. Medication's Wasted: Other = Fentanyl 75 mcg. Total IV fluids: 35 mL. Post-op diagnosis: Peripheral IVL and stenting of the the left Iliac. Complications: none. Estimated blood loss: 5mL-10mL. Responsiveness - Normal response to verbal stimuli; alert and oriented, PERRLA. Airway - Unaffected, no intervention required; spontaneous ventilation. Circulation: W/N/L, pulses unchanged. Nausea/Vomiting: No. Procedure completed. Patient transferred by bed to ICU. Vital chart was stopped. Access Site Site: Right Radial artery Sheath Size: 6 Fr Hemostasis Method: TR Band Hemostasis Success: Successful Site: Left Femoral artery Sheath Size: 6 Fr Hemostasis Method: Suture Hemostasis Success: Successful Procedure Medications Start: 7:37 AM Stop: 7:37 AM Medication: Versed Amount: 1 mg Route: I.V. Start: 7:37 AM Stop: 7:37 AM Medication: Fentanyl Amount: 50 mcg Route: I.V. Start: 7:42 AM Stop: 7:42 AM Medication: Versed Amount: 1 mg Route: I.V. Start: 7:44 AM Stop: 7:44 AM Medication: Fentanyl Amount: 50 mcg Route: I.V. Start: 8:12 AM Stop: 8:12 AM Medication: Fentanyl Amount: 25 mcg Route: I.V. Start: 8:19 AM Stop: 8:19 AM Medication: Versed Amount: 1 mg Route: I.V. Start: 8:31 AM Stop: 8:31 AM Medication: Fentanyl Amount: 25 mcg Route: I.V. Start: 8:37 AM Stop: 8:37 AM Medication: Nitrogylcerin Amount: 200 mcg Route: I.A. Start: 8:39 AM Stop: 8:39 AM Medication: Heparin Amount: 5000 units Route: I.V. Start: 8:44 AM Stop: 8:44 AM Medication: Fentanyl Amount: 25 mcg Route: I.V. Start: 8:47 AM Stop: 8:47 AM Medication: Versed Amount: 1 mg Route: I.V. Start: 8:54 AM Stop: 8:54 AM Medication: Fentanyl Amount: 25 mcg Route: I.V. Start: 8:58 AM Stop: 8:58 AM Medication: Heparin Amount: 3000 units Route: I.V. Start: 9:55 AM Stop: 9:55 AM Medication: Plavix Amount: 300 mg Route: P.O. I, the attending physician, have reviewed and verified all procedure medications. Yes, all medications given per verbal order History/Risk Factors Hypertension: Yes Dyslipidemia: Yes Peripheral Arterial Disease (PAD): Yes Myocardial Infarction (HI): No Obesity: No Renal Disease: No Tobacco Use: Current/Recent(w/in 1 year) Prior Interventions PCI: Yes CABG: No Valve Surgery: No Report Signatures Finalized by Armando Cabral MD on 06/11/2025 02:22 AM
--- NOTE | 2025-05-17 07:26 | W.PM.OPSUD ---
Surgery/Procedure H&P Update DATE OF PROCEDURE: May 17, 2025 DATE H&P PERFORMED: 04/24/25 H&P UPDATE INFORMATION: I have reviewed H&P completed within last 30 days, I have examined patient prior to procedure and No changes to prior documentation PREOP DIAGNOSIS: Lifestyle-limiting claudication PRIMARY INDICATION FOR PROCEDURE: Severe peripheral arterial disease Vocational claudication 54-year-old female past medical history significant for coronary artery disease hypertension hyperlipidemia continuous tobacco use for worsening of leg claudication to the extent now she cannot do her daily task saw me in the office she was noted to have complete occlusion of right SFA and also noted to have left iliac disease. It is the reason patient has been brought in today for peripheral angiogram/angioplasty/atherectomy/drug-coated balloon/stent if needed. PLANNED PROCEDURE: Operation Date: 05/17/25 07:00 Proposed Procedures p Peripheral Diagnostic - Periph. Angio.(Not Applicable) - Armando Cabral MD PATIENT REASSESSED PRIOR TO SEDATION, WITH NO CHANGE NOTED: Yes PHYSICAL EXAM: alert, oriented x 3, clear to auscultation bilaterally, regular rate & rhythm and operative site marked AIRWAY EVAL/ANESTHESIA PLAN: ASA II, Risks, benefits & alternatives of sedation and/or procedure discussed and Patient agrees to continue as planned ADDITIONAL INFORMATION: Patient has been explained all risk-benefit and alternative for the procedure patient understand 2% risk of stroke major bleed. Patient restand 5% risk of contrast-induced nephropathy or emergent vascular surgery amputation [place] pseudoaneurysm hematoma bruising. Patient agrees to it and would like to proceed with it.
--- NOTE | 2025-05-17 10:00 | PM.PROC ---
Procedure Note: Date of procedure: 05/17/25 Pre-procedure diagnosis: Lifestyle-limiting claudication/vocational claudication Procedure: Peripheral angiogram was performed: Patient was noted to have high-grade 80 to 90% proximal left common iliac stenosis. She was also noted to have right proximal to distal complete occlusion of SFA, popliteal, anterior and peroneal arteries. Tibioperoneal trunk was reconstituting in the proximal segment through collaterals on the right side. Since patient has left-sided high-grade common iliac stenosis we tried to address it over this peripheral angiogram. As patient has lifestyle-limiting claudication on both sides. Left-sided common iliac proximal lesion was treated with lithotripsy followed by Lifestream stent. Excellent radiographic result was obtained. Left common femoral artery sheath was sutured in. Plan: Bedrest for 5 hours after pulling out the sheath. Check PTT if less than 45 will pull out the sheath. Continue IV fluid 100 mL/h for 1 L. Patient has been loaded with Plavix 300 mg continue 75 mg of Plavix 81 mg of aspirin daily, add Xarelto low-dose upon discharge 2.5 mg. Will bring patient back for stage cutaneous intervention of right SFA popliteal intervention Possible discharge tomorrow Full note to be dictated Resume home meds Coding Level of Care Code Acute Code for [facility] Cem
[2025-05-17 13:15] LABS: Partial Thromboplastin Time 36.3 SECONDS (23.9-36.7)
[2025-05-17] MEDS: HYDROcodone-acetaminophen 5-325 mg Tablet 1 TAB PO (20:12)
[2025-05-18] VITALS (10 sets, daily range): BP systolic 122; BP diastolic 77; PULSE 66–85; RESP 12–23; O2SAT 96–100
[2025-05-18] MEDS: HYDROcodone-acetaminophen 5-325 mg Tablet 1 TAB PO (04:13)
[2025-05-18 04:25] LABS: Hematocrit 41.5 % (36-47); Hemoglobin 13.60 g/dL (11.27-16.99); Mean Corpuscular HGB Conc 32.8 g/dL (30-55); Mean Corpuscular Hemoglobin 31.7 pg (27-33); Mean Corpuscular Volume 96.7 fl (85-98); Nucleated Red Blood Cells % 0 %; Platelet Count 193 10^3/cmm (157-399); Red Blood Count 4.29 10^6/uL (3.85-5.65); White Blood Count 10.76 10^3/uL (3.29-11.43)
[2025-05-18 04:46] LABS: Anion Gap 14.0 (5-19); Blood Urea Nitrogen 8 mg/dL (6-20); Calcium 8.5 mg/dL (8.5-10.5); Carbon Dioxide 25 mmol/L (22-29); Chloride 104 mmol/L (98-107); Creatinine Clr Calc Pharmacy 108.3767; Glucose 122 mg/dL (65-115); Osmolality Calculated 288 mOsm/kg (285-295); Potassium 4.0 mmol/L (3.5-5.1); Sodium 139 mmol/L (136-145)
--- NOTE | 2025-05-18 09:14 | P.PN_ITS ---
Subjective 2 Subjective: Doing well. No leg or cath site pain Vitals/I&O/Wt Last Vital Signs Temp 98.2 F 05/17/25 06:00 Pulse 74 05/17/25 22:00 Resp 18 05/17/25 11:43 BP 127/76 05/17/25 10:35 Pulse Ox 97 05/17/25 06:00 O2 Del Method Room Air 05/17/25 11:13 05/17/25 05/18/25 05/18/25 22:59 06:59 14:59 Intake Total 853.333 / 853.333 0 / 853.333 200 / 200 Balance 853.333 / 853.333 0 / 853.333 200 / 200 Weight last 48 hrs Weight 211 lb Physical Exam 2 Narrative: General: In no acute distress Neck: No jugular venous distention Heart: Normal S1 and S2 with a regular rate and rhythm, no cardiac murmurs Lungs: Normal respiratory effort with no use of intercostal muscles, clear lungs sounds to auscultation Extremities: No lower extremity edema. 2+ left DP. Feet warm. Left groin without hematoma and bruit. Neuro: Alert and oriented x 3 Data 05/18/25 03:27 05/18/25 03:27 A&P Assessment and plan 1. PAD (peripheral artery disease): Peripheral angiogram was performed 05/17/25: 80 to 90% proximal left common iliac stenosis. right proximal to distal complete occlusion of SFA, popliteal, anterior and peroneal arteries. Tibioperoneal trunk was reconstituting in the proximal segment through collaterals on the right side. Left lestion treated with lithotripsy followed by Lifestream stent. Excellent radiographic result was obtained. Patient ordered Plavix 300 mg then 75 mg of Plavix and 81 mg of aspirin daily strt Xarelto 2.5 mg bid now per Dr. Cabral's instructions and not high risk for bleeding continue atorva 80 mg qhs Stable for discharge 2. HTN (hypertension): Controlled continue carvedilol PDMP PDMP Reviewed: Not Reviewed Attestations 2 Medical Necessity Statement*: Being discharged Coding Level of Care Code Acute Code for [facility] Fwd Diagnoses PAD (peripheral artery disease) I73.9 HTN (hypertension) I10
--- NOTE | 2025-05-18 10:19 | PC.NURSE ---
All D/C instructions educated, IV removed, paperwork signed. waiting on ride at this time
== END 2025-05-18 10:38 | disposition home or self-care (01) ==
LOC: CCL 05:47 → ICU 05-18 04:05
PROVIDERS: PCP Physician Assistant Medical; Visit Provider Internal Medicine Cardiovascular Disease
DX: I70.212 Atherosclerosis of native arteries of extremities with intermittent claudication, left leg (principal); I10 Essential (primary) hypertension; E78.5 Hyperlipidemia, unspecified; I25.10 Atherosclerotic heart disease of native coronary artery without angina pectoris; Z95.5 Presence of coronary angioplasty implant and graft; Z79.82 Long term (current) use of aspirin; Z79.02 Long term (current) use of antithrombotics/antiplatelets; E66.9 Obesity, unspecified; Z68.34 Body mass index [BMI] 34.0-34.9, adult; G47.30 Sleep apnea, unspecified; Z87.891 Personal history of nicotine dependence
CPT/HCPCS: 36415; 75625; 75716; 80048; 85025; 85730; 99152; 99153; C1725; C1769; C1874; C1887; C1894; C2623; C9765; J1644; J2250; J3010; J3490; J7030; J9999; Q0163; Q9967

== ENCOUNTER 2025-06-07 05:59 | Outpatient (CLI) | payer BC, SELFPAY ==
[2025-06-07] VITALS (23 sets, daily range): BP systolic 90–152; BP diastolic 49–83; PULSE 58–90; RESP 12–22; TEMP 36.6–36.8; O2SAT 89–98; BMI 33.9
[2025-06-07 06:30] LABS: Hematocrit 43.3 % (36-47); Hemoglobin 14.30 g/dL (11.27-16.99); Mean Corpuscular HGB Conc 33.0 g/dL (30-55); Mean Corpuscular Hemoglobin 31.3 pg (27-33); Mean Corpuscular Volume 94.7 fl (85-98); Nucleated Red Blood Cells % 0 %; Platelet Count 212 10^3/cmm (157-399); Red Blood Count 4.57 10^6/uL (3.85-5.65); White Blood Count 8.86 10^3/uL (3.29-11.43)
[2025-06-07 06:46] LABS: Anion Gap 14.3 (5-19); Blood Urea Nitrogen 11 mg/dL (6-20); Calcium 8.7 mg/dL (8.5-10.5); Carbon Dioxide 27 mmol/L (22-29); Chloride 106 mmol/L (98-107); Creatinine Clr Calc Pharmacy 108.1102; Glucose 94 mg/dL (65-115); Osmolality Calculated 295 mOsm/kg (285-295); Potassium 4.3 mmol/L (3.5-5.1); Sodium 143 mmol/L (136-145)
--- NOTE | 2025-06-07 07:00 | XACV_ITS ---
Exam Room: 2 Ht: 168 cm Wt: 95 kg BSA: 2.14 m2 Gender: Female : 1970 Any Known Allergies: Other Exam Priority: Routine Procedure(s): Procedure Description: Diagnostic procedure Procedure Description: Peripheral vascular Intervention Procedure Description: PV Balloon Procedure Description: PV Atherectomy Procedure Description: Miscellaneous Procedure Description: ACT [id number], Cabral; Diagnostic Cath Status: Elective Conclusions Patient was brought in today for staged percutaneous angioplasty/arthrectomy/lithotripsy/drug-coated balloon application to right lower extremity for chronically occluded right SFA and right popliteal artery along with tibioperoneal trunk.Indication: Lifestyle-limiting/vocational limiting claudication Equipment used: Short 6 Pashto sheath, UF catheter, Glidesheath, seeker catheter, CSI 2.0 bur/Viper wire, intravascular lithotripsy, drug-coated balloonLeft common femoral artery approach was adapted, left common femoral short sheath was placed, Glidewire was used to cross with UF catheter into the right common iliac artery while Glidewire was placed in the right common femoral and profundofemoral. Long 6 Pashto sheath was exchanged. With the help of seeker after somewhat difficulty we were able to cross through proximal to mid and distal right SFA however in the popliteal artery wire was going mostly in the collaterals with help of seeker we redirected the wire and finally crossed into the tibioperoneal trunk it appeared to be calcified and atretic in the proximal segment. We then switched to run-through with the help of seeker catheter and delivered multiple pulses of lithotripsy starting from the right popliteal to all the way to proximal and ostial SFA. Angiography did not reveal the patency of the right SFA and popliteal despite of intravascular lithotripsy, therefore we will switch run-through wire with Viper wire and performed arthrectomy of proximal to distal right SFA and popliteal artery, it appeared to me that distal to popliteal artery calcified tibioperoneal trunk which turns around therefore we did not use arthrectomy there. Multiple runs of CSI arthrectomy at low and mid RPM were performed throughout the right SFA and popliteal artery. We then used Lutonix drug-coated balloon 5.0 x 100 and 5.0 x 300 mm from popliteal to all the way back to the proximal and ostial right SFA.Excellent angiographic result with good patency of right SFA and popliteal artery was noted however it appeared to me that there is fistula communication at the level of the popliteal artery noted we would also be able to see distal tibioperoneal trunk fills anterior posterior tibial arteries through robust collaterals no therefore it appeared to me that proximal segment of the tibioperoneal trunk is calcified and chronically occluded. 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 Since patient has good pulses with both anterior tibial dopplerable now we decided to treat patient further conservatively from here in case of right lower extremity swelling may will refer for fistula closure, another option is we may will bring patient back through tibial approach try to open the proximal to mid tibioperoneal trunk as a stage percutaneous angioplasty.No complication noted. Recommendations 1-Return to inpatient for close monitoring and routine cath care 2-Risk factor modification for secondary prevention 3-Statin and aspirin 81 mg life-long, if tolerated 4-Continue Plavix 75mg p.o. daily for 3 months. We will assess at the end of one year again to continue if further or not 5-Continue optimal medical management 6-Follow up with Dr. Cabral in four weeks and your primary care in 10 days. Pressures Phase:Rest AO : 121 / 62 ( 86 ) @ 7:49:00 AM 107 / 66 ( 85 ) @ 8:05:00 AM 115 / 62 ( 83 ) @ 8:45:00 AM 105 / 62 ( 80 ) @ 9:27:00 AM 110 / 63 ( 82 ) @ 9:58:00 AM Hemodynamic Data Phase:Rest AO : 121.0 / 62.0 ( 86.0 ) @ 7:49:00 AM 107.0 / 66.0 ( 85.0 ) @ 8:05:00 AM 115.0 / 62.0 ( 83.0 ) @ 8:45:00 AM 105.0 / 62.0 ( 80.0 ) @ 9:27:00 AM 110.0 / 63.0 ( 82.0 ) @ 9:58:00 AM Clinical Evaluation EBL: 5mL-10mL Procedural Details Pre-Procedure Time Out. Identified patient by full name and date of as verbalized by the patient/guarantor. Does the consent match the physician's order: Yes. Accurate & Complete Informed Consent: Yes. Inpatient/Outpatient History & Physical on Chart: Yes. If H&P is completed, is and addenduem needed: No; If yes, is the addendum complete: N/A. Visualize and Verify Site with Patient/Guarantor: N/A. Relevant Radiology Images available: Yes. Pre-op teaching completed and patient verbalized understanding. The risks, benefits, and alternatives of sedation and/or procedure were discussed by physician. The patient agrees to continue. Procedure started. PERRLA. 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 Lungs clear x 5 lobes. IV Site on Arrival: 20 gauge in the left anticubital. IV Fluids: 0.9% NaCl at KVO. 0 mL infused prior to nursery laborer. Pre Procedural Pulses: right dorsalis pedis was 1+. Pre Procedural Pulses: left dorsalis pedis was Doppled. Pre Procedural Pulses: bilateral posterior tibial was Doppled. Pre Procedural Pulses: bilateral radial was 2+. Oxygen started at 2liters/min via nasal canula. bilateral groins was prepped with chloroprep then draped in the usual sterile fashion. Baseline sample Acquired. HR: 63 BPM. Physician arrived. Physician scrubbed in. Immediate Pre-Procedure Time Out. Correct Patient: Yes; Correct Procedure: Yes; Correct Site: Yes; Correct Patient Position: Yes; Correct Supplies: Yes; Dried Flammable Prep: Yes; Blood Products Available: N/A;. Lidocaine 1% infiltrated to the left groin. Arterial access obtained with micropuncture set. Wire unable to advance. Wire and needle out. Arterial access obtained with micropuncture set. Wire unable to advance. Wire and needle out. Arterial access obtained with micropuncture set. Lidocaine 1% infiltrated to the left groin. A 5FrFr UF catheter in over wire. Wire out. Glidewire inserted. Catheter removed over the glide wire. The short sheath exchanged for a 45cm 6FR Flexor sheath. Wire removed. Sheath injected in Right common femoral artery and runoff performed. Sheath injected in Right common femoral artery and runoff performed. Seeker catheter inserted and advanced over the glidewire to the right SFA. Wire out. 300cm Runthrough wire inserted and advanced through the seeker catheter. Runthrough wire out.Contrast hand injected through the seeker catheter. Runthrough wire inserted. Wire out. Contrast hand injected through the catheter. Runthrough wire inserted. Seeker catheter out OTW. Inflation number : 1 A Shockwave [id number] was prepped and advanced across the Popliteal, Right , then inflated to 4 CYNTHIA for 0:56 seconds. Inflation number: 2 The Shockwave [id number] was reinflated across the Popliteal, Right, to 4 CYNTHIA for 0:54 seconds. Inflation number: 3 The Shockwave [id number] was reinflated across the Popliteal, Right, to 2 CYNTHIA for 0:46 seconds. Inflation number: 1 The Shockwave 5.0h386am was reinflated across the Superficial Femoral, Right, to 4 CYNTHIA for 0:41 seconds. Inflation number: 2 The Shockwave [id number] was reinflated across the Superficial Femoral, Right, to 4 CYNTHIA for 0:42 seconds. Inflation number: 3 The Shockwave [id number] was reinflated across the Superficial Femoral, Right, to 4 CYNTHIA for 0:46 seconds. Inflation number: 4 The Shockwave [id number] was reinflated across the Superficial Femoral, Right, to 4 CYNTHIA for 0:36 seconds. Inflation number: 5 The Shockwave 5.7p808nz was reinflated across the Superficial Femoral, Right, to 4 CYNTHIA for 0:38 seconds. Inflation number: 6 The Shockwave 5.9v386dg was reinflated across the Superficial Femoral, Right, to 4 CYNTHIA for 0:32 seconds. Shockwave balloon removed OTW. Results checked. Seeker inserted over the wire. Runthrough wire out. Viperwire inserted. Diamondback 2.0mm orbital athrectomy daniella inserted OTW and advanced to the right SFA. Orbital athrectomy performed of the SFA. Orbital athrectomy performed of the Popliteal. CSI daniella removed OTW. Wire out. Results checked. Glidewire inserted. Inflation number : 7 A AB [place] [employer] CH[employer]IR FINISHER Catheter [id number] was prepped and advanced across the Superficial Femoral, Right , then inflated to 8 CYNTHIA for 2:04 seconds. Inflation number: 8 The AB [place] [employer] CH[employer]IR [employer]ISHER Catheter [id number] was reinflated across the Superficial Femoral, Right, to 8 CYNTHIA for 2:00 seconds. Balloon out over wire. Inflation number : 9 A Lutonix [id number] was prepped and advanced across the Superficial Femoral, Right , then inflated to 6 CYNTHIA for 3:00 seconds. Balloon out. Seeker inserted OTW. Wire out. Runthrough wire inserted. Seeker catheter out OTW. Inflation number : 10 A Lutonix 5.5p327oy was prepped and advanced across the Superficial Femoral, Right , then inflated to 7 CYNTHIA for 3:00 seconds. Balloon and wire out. ACT drawn. Results 204 seconds. Therapeutic limits - pre-heparin administration 90-150 seconds and monitoring heparin during a vascular procedure >250 seconds. Results checked. Physician review of cine films. DSA performed of the right lower leg and foot. The Flexor sheath exchanged for a short 6Fr sheath over the standard J wire. A Suture was successful obtaining hemostatsis at the Left Femoral artery insertion site. A Left femoral angiogram was performed to determine safe placement of closure device. Vital chart was stopped. PERRLA. 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 No VTE prophylaxis required. Medication's Wasted: Other = Versed 1 mg. Total IV fluids: 150 mL. Post-op diagnosis: PAD. Complications: None. Estimated blood loss: 5mL-10mL. Responsiveness - Normal response to verbal stimuli; alert and oriented, PERRLA. Airway - Unaffected, no intervention required; spontaneous ventilation. Circulation: W/N/L, pulses unchanged. Nausea/Vomiting: No. Procedure completed. Patient transferred by stretcher to CPRU. Access Site Site: Left Femoral artery Sheath Size: 6 Fr Hemostasis Method: Suture Hemostasis Success: Successful Procedure Medications Start: 7:20 AM Stop: 7:20 AM Medication: Versed Amount: 1 mg Route: I.V. Start: 7:20 AM Stop: 7:20 AM Medication: Fentanyl Amount: 50 mcg Route: I.V. Start: 7:26 AM Stop: 7:26 AM Medication: Versed Amount: 1 mg Route: I.V. Start: 7:36 AM Stop: 7:36 AM Medication: Versed Amount: 1 mg Route: I.V. Start: 7:55 AM Stop: 7:55 AM Medication: Versed Amount: 1 mg Route: I.V. Start: 8:13 AM Stop: 8:13 AM Medication: Versed Amount: 1 mg Route: I.V. Start: 8:45 AM Stop: 8:45 AM Medication: Heparin Amount: 5000 units Route: I.V. Start: 8:52 AM Stop: 8:52 AM Medication: Versed Amount: 1 mg Route: I.V. Start: 8:57 AM Stop: 8:57 AM Medication: Fentanyl Amount: 50 mcg Route: I.V. Start: 9:45 AM Stop: 9:45 AM Medication: Versed Amount: 1 mg Route: I.V. Start: 9:55 AM Stop: 9:55 AM Medication: Nitrogylcerin Amount: 400 mcg Route: I.A. Start: 10:05 AM Stop: 10:05 AM Medication: Zofran (ondansetron) Amount: 4 mg Route: I.V. I, the attending physician, have reviewed and verified all procedure medications. Yes, all medications given per verbal order History/Risk Factors Hypertension: Yes Dyslipidemia: Yes Peripheral Arterial Disease (PAD): Yes Myocardial Infarction (FL): No Obesity: No Renal Disease: No Tobacco Use: Current/Recent(w/in 1 year) Prior Interventions PCI: Yes CABG: No Valve Surgery: No Report Signatures Finalized by Armando Cabral MD on 06/11/2025 02:41 AM
--- NOTE | 2025-06-07 07:22 | W.PM.OPSFHP ---
Same Day Surgery H&P Indication for Procedure/HPI DATE OF PROCEDURE: June 07, 2025 CHIEF COMPLAINT/INDICATIONFOR SURGICAL PROCEDURE: Lifestyle-limiting claudication Vocational claudication Severe peripheral arterial disease Inability to complete the task PREOP DIAGNOSIS: Lifestyle-limiting claudication/severe peripheral arterial disease PLANNED PROCEDURE: Operation Date: 06/07/25 07:00 Proposed Procedures p Peripheral Diagnostic - Unilat Periph ANGIO(Not Applicable) - Armando Cabral MD 54-year-old female past medical history significant for coronary disease hypertension hyperlipidemia severe peripheral arterial disease underwent balloon angioplasty and stent placement of the left iliac during the same angiogram she was noted to have chronically occluded right SFA popliteal and below the knee severe disease. 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 She has to sit down all the time to get over her pain.It is the reason patient is brought in today for peripheral angiogram/percutaneous angioplasty/atherectomy/stent placement/drug-coated balloon if indicated. Medications/Allergies* Home Medications ?Medication ?Instructions ?Recorded ?Confirmed ?Type aspirin 81 mg tablet,delayed 81 mg PO DAILY 12/28/19 06/07/25 History release (Aspir-) trazodone 100 mg tablet 100 mg PO .q hs 03/05/25 06/07/25 History Allergies/Adverse Reactions Allergy/AdvReac Type Severity Reaction Status Date / Time amoxicillin Allergy ADR-Itching Verified 06/07/25 06:26 sumatriptan Allergy ALGY-Anaphy Verified 06/07/25 06:26 laxis adhesive tape AdvReac itchy Verified 06/07/25 06:26 Current Medications: Generic Name Dose Route Start Last Admin Trade Name Freq PRN Reason Stop Dose Admin Sodium Chloride 1,000 mls @ 50 mls/hr 06/07/25 06:00 06/07/25 06:11 Sodium Chloride 0.9% IV 06/08/25 01:59 Not Given .Q20H ONE Pertinent History/Comorbid Conditions* Medical History (Updated 04/15/25 @ 09:09 by Tresa Del Cid MD) Coronary artery disease Tobacco use disorder Obesity HTN (hypertension) Dyslipidemia Sleep apnea Surgical History (Updated 09/16/22 @ 06:56 by Nagi Sow PA-C) S/P cholecystectomy S/P total abdominal hysterectomy S/P coronary artery stent placement Family History (Updated 12/28/19 @ 09:01 by Dali Ackerman RN) Carotid artery stenosis Hypertension Social History Smoking and tobacco/nicotine status: former use of tobacco/nicotine (trying to quit) Second hand smoke exposure: No Alcohol intake: never Substance/Drug Use: never Caregiver/support person: Yes Lives independently: Yes Pertinent Exam Findings alert, oriented x 3, clear to auscultation bilaterally, regular rate & rhythm, operative site marked and procedure specific exam findings Conscious Sedation Assessment PATIENT ASSESSED PRIOR TO SEDATION, WITH NO CHANGE NOTED: Yes AIRWAY EVAL/ANESTHESIA PLAN: ASA II, Risks, benefits & alternatives of sedation and/or procedure discussed and Patient agrees to continue as planned ADDITIONAL INFORMATION: All risk-benefit and alternative of the procedure has been explained to the patient. Patient understand 2% risk of stroke major bleed. Patient understands 5% risk of minor bleeding oozing infection hematoma contrast-induced nephropathy urgent or emergent vascular surgery NV acute limb threatening ischemia major bleed requiring blood transfusion and worst-case scenario amputation loss of limb. Patient fully understood and would like to proceed with it. Recommendations Surgery/Procedure today Coding Level of Care Code Acute Code for Chg Fwd
--- NOTE | 2025-06-07 10:21 | PC.NURSE ---
Received the patient back from the labourers via bed s/p PCI of the right SFA and popliteal. Patient drowsy but awakens easily to voice. A & 0 x 3. nurse ob placed and vital signs obtained. Left Femoral access site with intact 6 fr sheath to pressure bag. No bleeding or hematoma noted. Doppled PT and DP pulses. No other assessment changes noted from pre cath assessment. Family at bedside. No concerns voiced at this time.
--- NOTE | 2025-06-07 10:30 | P.PCN_ITS ---
Procedure Note: Date of procedure: 06/07/25 Pre-procedure diagnosis: Critical limb ischemia/severe PAD Procedure: Peripheral angiogram was performed on the right lower extremity 100% occluded chronically SFA from the o stium to distal segment. Distal segment constitute through collaterals for short segment. Right popliteal is 100% chronically occluded Right tibioperoneal trunk with 100% chronically occluded Right anterior tibial 100% chronically occluded Right posterior tibial is 100% chronically occluded in the midsegment Right peroneal is 100% chronically occluded There appeared to be collateral filling through venous fistula perhaps keeping the leg alive Percutaneous angioplasty using arthrectomy and shockwave in SFA and popliteal segments followed by drug-coated balloons along with known drug-coated balloon. Good angiographic result was noted we were able to restore flow in SFA and popliteal vessel. Tibioperoneal trunk is chronically occluded at atretic and calcified vessel however robust collaterals developed filling anterior and posterior tibial. Two-vessel runoff was noted at the end of the case given the nature of calcified mid tibioperoneal trunk high-grade stenosis perhaps communicating through the venous fistula we did not attempt to balloon or angioplasty. Good two-vessel runoff was noted at the end of the case below the knee. No complication noted Plan: Bedrest for 4-hour post sheath discontinuation Continue IV fluid 100 mL/h for 1 L Continue Plavix, resume Eliquis from tomorrow, continue aspirin. Continue home medications Full note to be dictated. Coding Level of Care Code Acute Code for Wilfredo Fwchristopher
[2025-06-07 14:13] LABS: Partial Thromboplastin Time 26.5 SECONDS (23.9-36.7)
--- NOTE | 2025-06-07 15:49 | PC.NURSE ---
patient arrived on the floor at 1533 with left groin sight angiosealed with small amount of blood noted. No new blood noted. Report was taken over the phone from Elisabeth Ruiz RN, and bedside assessment was done with lCaudia Marsh RN. No hematoma noted on arrival.
--- NOTE | 2025-06-07 17:04 | PC.NURSE ---
please see cardiac cath flowsheet vitals in the vitals portion of the chart.
--- NOTE | 2025-06-07 19:08 | PC.NURSE ---
some oozing noted around patient's angioseal site. Pressure held and site was redressed. Dr Cabral notified and he instructed nurse to put on a pressure dressing and remind patient to not move around. Notify Dr Cabral if patient continues to significantly ooze. Site redressed with gauze and tegaderm.
[2025-06-07] MEDS: HYDROcodone-acetaminophen 5-325 mg Tablet 1 TAB PO (19:20)
--- NOTE | 2025-06-07 22:17 | PC.NURSE ---
Patient saturated dressing on left femoral puncture from garage laborer, since it was changed at 1900. Notified Dr. Cabral. Given orders to redress site and to call back for any future major concerns. Reinforced previous education about movement. No hematoma present at site. Redressed site with 4x4 and tegaderm.
[2025-06-08] VITALS (11 sets, daily range): BP systolic 82–126; BP diastolic 49–80; PULSE 61–79; RESP 11–26; TEMP 36.8; O2SAT 62–92
[2025-06-08 03:11] LABS: Hematocrit 38.6 % (36-47); Hemoglobin 12.80 g/dL (11.27-16.99); Mean Corpuscular HGB Conc 33.2 g/dL (30-55); Mean Corpuscular Hemoglobin 31.9 pg (27-33); Mean Corpuscular Volume 96.3 fl (85-98); Nucleated Red Blood Cells % 0 %; Platelet Count 186 10^3/cmm (157-399); Red Blood Count 4.01 10^6/uL (3.85-5.65); White Blood Count 9.13 10^3/uL (3.29-11.43)
[2025-06-08 03:28] LABS: Anion Gap 14.0 (5-19); Blood Urea Nitrogen 8 mg/dL (6-20); Calcium 8.4 mg/dL (8.5-10.5); Carbon Dioxide 24 mmol/L (22-29); Chloride 107 mmol/L (98-107); Creatinine Clr Calc Pharmacy 108.1102; Glucose 79 mg/dL (65-115); Osmolality Calculated 289 mOsm/kg (285-295); Potassium 4.0 mmol/L (3.5-5.1); Sodium 141 mmol/L (136-145)
--- NOTE | 2025-06-08 11:58 | PM.DCS ---
Discharge Providers Date of Admission: June 07, 2025 Date of Discharge: June 08, 2025 Attending Provider at Admission: Armando Cabral MD Attending Provider at Discharge: Armando Cabral MD Primary Care Provider: SARAH Kirby Reason for Visit Reason for Visit: I70.221 Brief History: Lifestyle-limiting claudication hindering her work Hospital Course Hospital Course 54-year-old female past medical history significant for tobacco use hypertension hyperlipidemia severe peripheral arterial disease for lifestyle-limiting claudication hindering her work on daily basis underwent peripheral angiogram noted to have chronically occluded SFA, popliteal, tibioperoneal trunk anterior and posterior tibial arteries. She was treated with intravascular lithotripsy, CSI atherectomy nondrug coated and drug-coated balloon angioplasty and SFA popliteal tibioperoneal trunk. Excellent angiographic result was achieved. It was also noted that patient has AV fistula at the level of popliteal, there is a torturous atretic distal tibioperoneal trunk however with opening up of good inflow from SFA collaterals fills anterior and posterior tibial with good two-vessel runoff therefore we accepted the result. Overnight no significant event. Patient tolerated procedure well and recovered without any complication. This morning she does not have hematoma. She has good anterior posterior dopplerable and posterior tibial palpable pulse in the right leg. we will be discharging her. Physical Exam Const: OTHER: GENERAL: Patient is alert, awake and oriented x3. HEART: Regular S1 and S2. No murmur, rub or gallop. LUNGS: Clear to auscultate bilaterally. CENTRAL NERVOUS SYSTEM: Grossly nonfocal. EXTREMITIES: Lower extremities with out edema bilaterally. 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 Routine Exams 06/07/25 07:00 Taken Laboratory Results WBC 9.13 10^3/uL (3.29-11.43) 06/08/25 02:39 RBC 4.01 10^6/uL (3.85-5.65) 06/08/25 02:39 Hgb 12.80 g/dL (11.27-16.99) 06/08/25 02:39 Hct 38.6 % (36-47) 06/08/25 02:39 MCV 96.3 fl (85-98) 06/08/25 02:39 MCH 31.9 pg (27-33) 06/08/25 02:39 MCHC 33.2 g/dL (30-55) 06/08/25 02:39 RDW 12.7 % (12.1-15.1) 06/08/25 02:39 Plt Count 186 10^3/cmm (157-399) 06/08/25 02:39 MPV 10.9 fL (7.4-10.4) H 06/08/25 02:39 Neut % (Auto) 61.1 % 06/08/25 02:39 Lymph % (Auto) 27.3 % 06/08/25 02:39 [place] % (Auto) 9.7 % 06/08/25 02:39 Eos % (Auto) 0.8 % 06/08/25 02:39 Baso % (Auto) 0.7 % 06/08/25 02:39 Neut # (Auto) 5.58 10^3/uL (1.8-7.7) 06/08/25 02:39 Lymph # (Auto) 2.5 10^3/uL (0.8-4.8) 06/08/25 02:39 [place] # (Auto) 0.9 10^3/uL (0.2-0.9) 06/08/25 02:39 Eos # (Auto) 0.1 10^3/uL (0.0-0.8) 06/08/25 02:39 Baso # (Auto) 0.1 10^3/uL (0.0-0.1) 06/08/25 02:39 Nucleated RBC % (auto) 0 % 06/08/25 02:39 Nucleated RBCs # 0.0 /100WBC 06/08/25 02:39 APTT 26.5 SECONDS (23.9-36.7) 06/07/25 13:50 Sodium 141 mmol/L (136-145) 06/08/25 02:39 Potassium 4.0 mmol/L (3.5-5.1) 06/08/25 02:39 Chloride 107 mmol/L (98-107) 06/08/25 02:39 Carbon Dioxide 24 mmol/L (22-29) 06/08/25 02:39 Anion Gap 14.0 (5-19) 06/08/25 02:39 BUN 8 mg/dL (6-20) 06/08/25 02:39 Creatinine 0.7 mg/dL (0.5-0.9) 06/08/25 02:39 GFR Calculation 87.5 mL/min (90-130) L 06/08/25 02:39 Glucose 79 mg/dL (65-115) 06/08/25 02:39 Calculated Osmolality 289 mOsm/kg (285-295) 06/08/25 02:39 Calcium 8.4 mg/dL (8.5-10.5) L 06/08/25 02:39 Vitals Last Vital Signs Temp 98.2 F 06/08/25 07:39 Pulse 79 06/08/25 09:29 Resp 15 06/08/25 09:29 BP 98/52 06/08/25 09:29 Pulse Ox 92 06/08/25 07:39 O2 Del Method Room Air 06/08/25 06:04 Discharge Plan Discharge Patient Disposition: Home Prescriptions: New pantoprazole [Protonix] 40 mg tablet,delayed release (DR/EC) 40 mg PO DAILY Qty: 90 4RF Continued aspirin [Aspir-81] 81 mg tablet,delayed release (DR/EC) 81 mg PO DAILY alendronate [Fosamax] 70 mg tablet 70 mg PO Q7D Qty: 4 0RF trazodone 100 mg tablet 100 mg PO .q hs carvedilol 3.125 mg tablet 3.125 mg PO BID Qty: 180 3RF Rx Instructions: must administer with a meal/food clopidogrel 75 mg tablet 75 mg PO DAILY Qty: 90 3RF nitroglycerin 0.4 mg tablet, sublingual 0.4 mg SUBLINGUAL Q5M PRN (Reason: Pain) Qty: 30 3RF Rx Instructions: do not exceed 3 doses per episode atorvastatin 80 mg tablet 80 mg PO DAILY Qty: 90 3RF rivaroxaban [Xarelto] 2.5 mg tablet 2.5 mg PO BID Qty: 60 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 Diet: Cardiac Activity: Increase activity as tolerated Patient Instructions: Peripheral Vascular Angioplasty (DC) Activity Restrictions/Additional Instructions: Patient can go back to work without any restriction by Tuesday, 10 June 2025. Follow-up with Dr. Cabral in July 2025 Print Language: Telugu Discharge Attestations Time Spent in Discharge Care*: less than 30 min Specific Discharge Activities: educating patient and educating and/or supporting family/caregiver Time Spent in Smoking Cessation: Advised quitting smoking Quality Metrics Clinical Quality Measures [ No reported AMI, CVA or VTE this stay] Coding Level of Care Code Acute Code for Chg Fwchristopher
== END 2025-06-08 12:44 | disposition home or self-care (01) ==
LOC: CCL 06:00 → CSU 06-08 10:17
PROVIDERS: PCP Physician Assistant Medical; Visit Provider Internal Medicine Cardiovascular Disease
DX: I74.5 Embolism and thrombosis of iliac artery (principal); I70.211 Atherosclerosis of native arteries of extremities with intermittent claudication, right leg; I10 Essential (primary) hypertension; E78.5 Hyperlipidemia, unspecified; Z79.82 Long term (current) use of aspirin; I25.10 Atherosclerotic heart disease of native coronary artery without angina pectoris; E66.9 Obesity, unspecified; Z68.33 Body mass index [BMI] 33.0-33.9, adult; G47.30 Sleep apnea, unspecified; Z87.891 Personal history of nicotine dependence; Z79.02 Long term (current) use of antithrombotics/antiplatelets
CPT/HCPCS: 36415; 51702; 75710; 80048; 85025; 85347; 85730; 96365; 96374; 99152; 99153; C1724; C1725; C1760; C1769; C1880; C1887; C1894; C9766; G0269; J1644; J2250; J2405; J3010; J3490; J7030; J9999; Q0163; Q9967

== ENCOUNTER 2025-07-12 08:38 | Outpatient (CLI) | payer BC, SELFPAY ==
--- NOTE | 2025-07-12 08:48 | CTR_ITS ---
PROCEDURE INFORMATION: Exam: CTA Abdominal Aorta and Bilateral Lower Extremities (Run-off) With Contrast Exam date and time: 07/12/2025 9:02 AM Age: 54 years old Clinical indication: Foot Pain; Prior Surgery; Surgery Date: 6+ months; Surgery Type: LT ILIAC STENT, RT ILIAC ENDARTERECTOMY; LEFT ILIAC STENT, HAD RT ILIAC ENDARTERECTOMY, PATIENT NOTES A POSSIBLE COMMUNICATION BETWEEN THE RIGHT ILIAC ARTERY AND VEIN; Additional Info: M79.672 - Pain in left foot TECHNIQUE: Imaging protocol: Computed tomographic angiography of the of the abdominal aorta, pelvis and bilateral lower extremities with contrast. 3D rendering (Not supervised by radiologist): MIP and/or 3D reconstructed images were created by the technologist. Radiation optimization: All CT scans at this facility use at least one of these dose optimization techniques: automated exposure control; mA and/or kV adjustment per patient size (includes targeted exams where dose is matched to clinical indication); or iterative reconstruction. Contrast material: OMNI 350; Contrast volume: 100 ml; Contrast route: INTRAVENOUS (IV); COMPARISON: CT angio abd aorta runof 73802 04/16/2025 2:27 PM RADIATION DOSE METRICS: Total DLP (mGy-cm): 1762.33 FINDINGS: Aorta: No aortic aneurysm. No aortic dissection. Atherosclerotic calcifications in the infrarenal aorta. Celiac and mesenteric arteries: No occlusion or significant stenosis. Renal arteries: No occlusion or significant stenosis. Right iliac arteries: Diffuse atherosclerosis. Multiple areas of mild stenosis. No occlusion or significant stenosis. Right femoral/popliteal arteries: No occlusion or significant stenosis. There is an AV fistula between the popliteal artery and vein at the level of the tibial plateau. Venous contrast is seen from this point extending superiorly to the level of the IVC. Right infrapopliteal arteries: No occlusion or significant stenosis. Left iliac arteries: Left common iliac artery stent. Diffuse atherosclerotic calcification. Multiple areas of mild stenosis. No occlusion or significant stenosis. Left femoral/popliteal arteries: There is a focal filling defect in the left common femoral artery at the level of the inguinal ligament. This is approximately 7 mm in length and represents approximately 75 % stenosis. No occlusion or significant stenosis. Left infrapopliteal arteries: No occlusion or significant stenosis. Lungs: The visualized portions of the lung bases demonstrate some possible mild vascular congestion and peripheral septal thickening. There is a 9 mm nonspecific nodular opacity in the left lower lobe on the 1st image. Pleural spaces: No pleural effusion. Heart: Mild cardiomegaly is noted. Liver: Liver is normal in size. There are no masses. No intrahepatic duct dilatation. Gallbladder and biliary ducts: The gallbladder is surgically absent with clips in the gallbladder fossa. Pancreas: Pancreas is unremarkable. There are no masses. No pancreatic duct dilatation. Spleen: Spleen is normal in size and position. There are no splenic masses. Adrenal glands: The adrenal glands are normal. Kidneys and ureters: The kidneys are normal in size and symmetrical in function. No hydronephrosis. No renal stones identified. No ureteral stones are noted. Stomach and bowel: There is no evidence of bowel obstruction. There is no small bowel wall thickening. There is no large bowel wall thickening. There is no gastrointestinal diverticular disease. Appendix: The appendix is visualized and appears normal. Urinary bladder: Unremarkable. No mass. Reproductive: Unremarkable as visualized. Question of a previous partial hysterectomy and residual cervical cuff. Intraperitoneal space: No free air. No significant fluid collection. Lymph nodes: No pathologically enlarged retroperitoneal adenopathy appreciated. Bones/joints: Spine demonstrates an old compression fracture at L2, stable compared with April 2025. Postsurgical changes are seen at L4-L5 with posterior stabilization and presence of a disc prosthesis. There is no acute fracture or dislocation. Soft tissues: Soft tissues of the visible body wall demonstrate no masses, ectopic air or fluid collections. Soft tissues of the lower extremities are unremarkable. CT/CT angio abd aorta runof [id number] IMPRESSION: 1. 75% focal occlusion in the proximal common iliac artery best seen axial image 435 and coronal image 112. Left iliac graft appears intact. Peripheral runoff in general is diminished compared to the opposite side but patent to the ankle. 2. Postsurgical changes in the distal right femoral and popliteal artery. There is an AV fistula between the popliteal artery and vein at the level of the tibial plateau. Venous contrast is seen from this point extending superiorly to the level of the IVC. 3. 9 mm nodule in the left lower lung is not completely evaluated. Nonemergent follow-up with lung screening protocol suggested. 4. Mild cardiomegaly. Mild pulmonary vascular congestion. 5. THIS REPORT CONTAINS FINDINGS THAT MAY BE CRITICAL TO PATIENT CARE. The findings were verbally communicated via telephone conference with Dr. Corbett at 4:57 PM EXECUTIVE DIRECTOR OF MARKETING on 07/12/2025. The findings were acknowledged and understood. Nodule follow-up was not discussed. REFERENCES: Padma Coronado, et al. Guidelines for Management of Incidental Pulmonary Nodules Detected on CT Images: From the Fleischner Society 2017. Radiology. 2017;284(1):228-243. Link: [email or web address]
[2025-07-12] MEDS: iohexol 350 mg/mL 500 mL Btl (per mL) IV (09:06)
== END 2025-07-12 08:39 | disposition home or self-care (01) ==
LOC: RAD 08:39
PROVIDERS: PCP Physician Assistant Medical; Visit Provider Internal Medicine Cardiovascular Disease
DX: I73.9 Peripheral vascular disease, unspecified (principal); Z98.890 Other specified postprocedural states; I70.0 Atherosclerosis of aorta; J98.4 Other disorders of lung; R91.1 Solitary pulmonary nodule; I51.7 Cardiomegaly; Z90.49 Acquired absence of other specified parts of digestive tract; Z90.710 Acquired absence of both cervix and uterus
CPT/HCPCS: 75635